=== PATIENT | female | born 1975 | race Caucasian/White ===

== ENCOUNTER 2017-10-22 15:17 | Emergency (ER) | payer OTHER ==
--- NOTE | 2017-10-22 16:20 | RAD REPORT ---
EXAM DESCRIPTION: RAD - Shoulder Right 2 View - 10/22/2017 4:14 pm CLINICAL HISTORY: Right shoulder pain. COMPARISON: 06/20/2017 FINDINGS: Slight offsetting of the AC joint appears chronic. No fracture, dislocation or aggressive marrow lesion. Hardware plate is present in the cervical spine.
--- NOTE | 2017-10-22 16:48 | ER ---
Nurse's Notes [facility] Name: Antonina Thompson Age: 42 yrs Sex: Female : 1975 Arrival Date: 10/22/2017 Time: 15:20 Bed 10 Private MD: Jorge L Ann E Diagnosis: Pain in right shoulder Presentation: 10/22 15:38 Presenting complaint: Patient states: "I think I hurt my shoulder in bed last night". aa5 pt c/o pain to right shoulder. Transition of care: patient was not received from another setting of care. Onset of symptoms was October 22, 2017. Risk Assessment: Do you want to hurt yourself or someone else? Patient reports no desire to harm self or others. Initial Sepsis Screen: Does the patient meet any 2 criteria? No. Patient's initial sepsis screen is negative. Does the patient have a suspected source of infection? No. Patient's initial sepsis screen is negative. Care prior to arrival: None. 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 - Social history:: Smoking status: Patient uses tobacco products, smokes one pack cigarettes per day. - Ebola Screening: : No symptoms or risks identified at this time. - Family history:: not pertinent. - Hospitalizations: : No recent hospitalization is reported. Screenin:15 Abuse screen: Denies threats or abuse. Denies injuries from another. Nutritional kr2 screening: No deficits noted. Tuberculosis screening: No symptoms or risk factors identified. Fall Risk None identified. Assessment: 16:15 General: Appears in no apparent distress. uncomfortable, well groomed, well developed, kr2 well nourished, Behavior is calm, cooperative, appropriate for age. Pain: Complains of pain in right shoulder Pain does not radiate. Pain currently is 10 out of 10 on a pain scale. Quality of pain is described as aching, tender, Pain began this morning Is continuous, Alleviated by rest, Aggravated by increased activity, repositioning. Neuro: Level of Consciousness is awake, alert, obeys commands, Oriented to person, place, time, situation, Appropriate for age Intact. Cardiovascular: Capillary refill < 3 seconds in bilateral fingers Patient's skin is warm and dry. Respiratory: Airway is patent Respiratory effort is even, unlabored, Respiratory pattern is regular, symmetrical. Derm: Skin is intact, is healthy with good turgor, Skin is pink, warm \\T\\ dry. Musculoskeletal: Circulation, motion, and sensation intact. Range of motion: limited in right shoulder. 17:10 Reassessment: Patient appears in no apparent distress at this time. Patient and/or kr2 family updated on plan of care and expected duration. Pain level reassessed. Patient is alert, oriented x 3, equal unlabored respirations, skin warm/dry/pink. Placed right arm in sling as instructed by Dr. Loaiza. Verbalizes increased comfort with sling in place. Vital Signs: 15:40 BP 110 / 80; Pulse 72; Resp 18 S; Temp 98.3(TE); Pulse Ox 98% on R/A; Weight 96.16 kg aa5 (R); Height 5 ft. 6 in. (167.64 cm) (R); Pain 10/10; 15:40 Body Mass Index 34.22 (96.16 kg, 167.64 cm) aa5 ED Course: 15:20 Patient arrived in ED. sb2 15:21 Jorge L Ann MD is Private Physician. sb2 15:39 Triage completed. aa5 15:39 Arm band placed on. aa5 15:49 Daniela Banks RN is Primary Nurse. aa5 15:51 Patient's name was called from ER lobby. No response. 15:58 Luis Loaiza MD is Attending Physician. rn 16:13 X-ray completed. Portable x-ray completed in exam room. Patient tolerated procedure kp1 well. 16:14 XRAY Shoulder RIGHT 2 view In Process Unspecified. EDMS 16:15 Patient has correct armband on for positive identification. Call light in reach. Door kr2 closed. Verbal reassurance given. 16:23 Belem Jenkins, DORA is Primary Nurse. kr2 16:47 Jorge L Ann MD is Referral Physician. rn 17:14 No provider procedures requiring assistance completed. Patient did not have IV access kr2 during this emergency room visit. Administered Medications: No medications were administered Outcome: 16:47 Discharge ordered by . rn 17:14 Discharged to home ambulatory. kr2 17:14 Condition: good 17:14 Discharge instructions given to patient, Instructed on discharge instructions, follow up and referral plans. Demonstrated understanding of instructions, follow-up care. 17:14 Patient left the ED. kr2 Signatures: Dispatcher [employer] EDMS Genoveva Sorto, RN RN Luis Ohara MD MD rn Calderon, Audri, RN RN [email or web address] Laverne Mckeon kp1 Belem Jenkins RN RN kr2 Ayala Ordaz sb2
--- NOTE | 2017-10-22 16:48 | EDPHYS ---
Physician Documentation [facility] Name: Antonina Thompson Age: 42 yrs Sex: Female : 1975 Arrival Date: 10/22/2017 Time: 15:20 Bed 10 Private MD: Jorge L Ann E ED Physician Luis Loaiza HPI: 10/22 16:44 This 42 yrs old Female presents to ER via Ambulatory with complaints of rn Shoulder Pain. 16:44 The patient or guardian complains of pain. right shoulder. Onset: The symptoms/episode rn began/occurred last night. Modifying factors: the symptoms are alleviated by nothing. The symptoms are aggravated by rotation of arm. Severity of symptoms: At their worst the symptoms were moderate, in the emergency department the symptoms have improved. The patient has experienced similar episodes in the past. Reports was asleep, woke up when she felt a pop, no trauma, thinks rolled over, + long standing rotator cuff problems on that arm. . 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 - Social history:: Smoking status: Patient uses tobacco products, smokes one pack cigarettes per day. - Ebola Screening: : No symptoms or risks identified at this time. - Family history:: not pertinent. - Hospitalizations: : No recent hospitalization is reported. ROS: 16:44 Constitutional: Negative for fever, chills, and weight loss, Eyes: Negative for injury, rn pain, redness, and discharge, Neck: Negative for injury, pain, and swelling, Cardiovascular: Negative for chest pain, palpitations, and edema, Respiratory: Negative for shortness of breath, cough, wheezing, and pleuritic chest pain, Abdomen/GI: Negative for abdominal pain, nausea, vomiting, diarrhea, and constipation, MS/Extremity: + right shoulder pain Skin: Negative for injury, rash, and discoloration, Neuro: Negative for headache, weakness, numbness, tingling, and seizure. Exam: 16:44 Constitutional: This is a well developed, well nourished patient who is awake, alert, rn and in no acute distress. Neck: Trachea midline, no thyromegaly or masses palpated, and no cervical lymphadenopathy. Supple, full range of motion without nuchal rigidity, or vertebral point tenderness. No Meningismus. MS/ Extremity: Pulses equal, no cyanosis. Neurovascular intact. + painful ROM right shoulder, no neck tenderness. Vital Signs: 15:40 BP 110 / 80; Pulse 72; Resp 18 S; Temp 98.3(TE); Pulse Ox 98% on R/A; Weight 96.16 kg aa5 (R); Height 5 ft. 6 in. (167.64 cm) (R); Pain 10/10; 15:40 Body Mass Index 34.22 (96.16 kg, 167.64 cm) aa5 MDM: 15:58 Patient medically screened. rn 16:44 Differential diagnosis: Anterior dislocation without fracture, DJD, tendonitis. Data rn reviewed: vital signs, nurses notes, radiologic studies, plain films, and as a result, I will discharge patient. Counseling: I had a detailed discussion with the patient and/or guardian regarding: the historical points, exam findings, and any diagnostic results supporting the discharge/admit diagnosis, radiology results, the need for outpatient follow up, to return to the emergency department if symptoms worsen or persist or if there are any questions or concerns that arise at home. Special discussion: I discussed with the patient/guardian in detail that at this point there is no indication for admission to the hospital. It is understood, however, that if the symptoms persist or worsen the patient needs to return immediately for re-evaluation. Further emergent ED testing is not indicated at this point in time. I discussed with the patient/guardian in detail the need to arrange with the PCP or specialist further outpatient testing, MRI. 10/22 15:58 Order name: XRAY Shoulder RIGHT 2 view; Complete Time: 16:22 rn Administered Medications: No medications were administered Disposition: 10/22/17 16:47 Discharged to Home. Impression: Pain in right shoulder. - Condition is Stable. - Medication Reconciliation Form, Thank You Letter, Antibiotic Education, Prescription Opioid Use form. - Follow up: Jorge L Ann MD; When: As needed; Reason: Recheck today's complaints, Re-evaluation by your physician. - Problem is new. - Symptoms have improved. Signatures: Dispatcher [employer] Luis Hopson MD MD rn Calderon, Audri RN RN aa5 Belem Jenkins RN RN kr2 Corrections: (The following items were deleted from the chart) 17:14 16:47 10/22/2017 16:47 Discharged to Home. Impression: Pain in right shoulder. kr2 Condition is Stable. Forms are Medication Reconciliation Form, Thank You Letter, Antibiotic Education, Prescription Opioid Use. Follow up: Jorge L Ann; When: As needed; Reason: Recheck today's complaints, Re-evaluation by your physician. Problem is new. Symptoms have improved. rn
== END 2017-10-22 17:14 | disposition home or self-care (01) ==
LOC: ER 15:17
DX: M25.511 Pain in right shoulder (principal); I10 Essential (primary) hypertension; J45.909 Unspecified asthma, uncomplicated; Z88.6 Allergy status to analgesic agent; Z88.1 Allergy status to other antibiotic agents
CPT/HCPCS: 99283

== ENCOUNTER 2018-05-22 14:52 | Emergency (ER) | payer OTHER ==
--- OUTSIDE RECORDS SUMMARY | 2018-05-22 14:54 | XMS REPORT ---
:1975 Author Organization eClinicalWorks Care Team Providers Name Role Phone ZaraMikal Provider Role Unavailable Allergies, Adverse Reactions, Alerts Substance Reaction Event Type Ibuprofen Info Not Available Drug Allergy Bactrim Info Not Available Drug Allergy Problems Problem Type Condition Code Onset Dates Condition Status Problem Arthritis M19.90 Active Problem Personal history of other diseases Z87.19 Active of the digestive system Problem Essential hypertension I10 Active Problem Somnolence, daytime R40.0 Active Problem Other specified postprocedural Z98.890 Active states Problem Excessive and frequent menstruation N92.1 Active with irregular cycle Problem Major depressive disorder, single F32.9 Active episode, unspecified Problem Anxiety disorder, unspecified F41.9 Active Problem Family history of Tapia syndrome Z80.0 Active Problem Kidney disease, chronic, stage I N18.1 Active (GFR over 89 ml/min) Assessment Umbilical hernia without K42.9 Active obstruction and without gangrene Problem Reflux esophagitis K21.0 Active Problem Family history of pancreatic cancer Z80.0 Active Problem Menorrhagia with irregular cycle N92.1 Active Problem Family history of breast cancer Z80.3 Active Problem Family history of colon cancer Z80.0 Active Problem Irregular menses N92.6 Active Medications Medication Code Code Instructions Start End Status Dosage System Date Date Diflucan [facility] 44870820967 150 MG Orally October Active 1 tablet Take one now and , repeat dose in 2018 72h Duloxetine HCl ND 24854083851 30 MG Orally Active 1 capsule Once a day Metformin HCl ND 04800698948 500 MG Orally Active 1 tablet Once a day with a meal Trokendi XR [facility] 24117291762 200 MG Orally Active 1 capsule Once a day Lisinopril ND 86073586870 20 MG Orally Active 1 tablet Once a day Results No Known Results Summary Purpose eClinicalWorks Submission
--- OUTSIDE RECORDS SUMMARY | 2018-05-22 14:54 | XMS REPORT ---
:1975 Author Organization e[employer] Care Team Providers Name Role Phone Lupe Benoit Provider Role Unavailable Allergies, Adverse Reactions, Alerts Substance Reaction Event Type Ibuprofen Info Not Available Drug Allergy Bactrim Info Not Available Drug Allergy Problems Problem Type Condition Code Onset Dates Condition Status Problem Arthritis M19.90 Active Problem Personal history of other diseases Z87.19 Active of the digestive system Problem Essential hypertension I10 Active Problem Somnolence, daytime R40.0 Active Assessment Slow rate of speech R47.89 Active Problem Other specified postprocedural Z98.890 Active states Problem Excessive and frequent menstruation N92.1 Active with irregular cycle Problem Major depressive disorder, single F32.9 Active episode, unspecified Problem Anxiety disorder, unspecified F41.9 Active Problem Family history of Tapia syndrome Z80.0 Active Problem Kidney disease, chronic, stage I N18.1 Active (GFR over 89 ml/min) Assessment Excessive and frequent menstruation N92.1 Active with irregular cycle Assessment Somnolence, daytime R40.0 Active Assessment Vaginal discharge N89.8 Active Problem Reflux esophagitis K21.0 Active Problem Family history of pancreatic cancer Z80.0 Active Problem Menorrhagia with irregular cycle N92.1 Active Problem Family history of breast cancer Z80.3 Active Problem Family history of colon cancer Z80.0 Active Problem Irregular menses N92.6 Active Medications Medication Code Code Instructions Start End Status Dosage System Date Date Azithromycin ND 82302633192 1 GM Orally November 12October Active as directed Once a day 2017 Metformin HCl NDC 99842164307 500 MG Orally Active 1 tablet Once a day with a meal Trokendi XR ND 07529893300 200 MG Orally Active 1 capsule Once a day Duloxetine HCl ND 50081107681 30 MG Orally Active 1 capsule Once a day Lisinopril ND 19081739704 20 MG Orally Active 1 tablet Once a day Results Name Result Date Reference Range Unit Abnormality Flag TEST URINE ----RESULTS neg 20171112 URINALYSIS AUTO W/O SCOPE (24748) ----PROTEIN trace 20171112 ----pH 7.0 20171112 ----NIT neg 20171112 ----IDALIA trace 20171112 ----URO 1.0 20171112 ----SPECIFIC GRAVITY 1.020 20171112 ----BLO neg 20171112 ----BILIRUBIN 1+ 20171112 ----KETONES neg 20171112 ----GLUCOSE neg 20171112 Summary Purpose eClinicalWorks Submission
[2018-05-22] MEDS ORDERED: NA CHLORIDE 0.9% 1,000 ML ONE (15:52)
[2018-05-22] MEDS ORDERED: ONDANSETRON 4 MG/2 ML VIAL ONE (15:52)
[2018-05-22] MEDS ORDERED: MORPHINE 4 MG/ML SYR ONE (15:52)
[2018-05-22] MEDS ORDERED: ACETAMINOPHEN 500 MG TAB ONE (15:52)
[2018-05-22 16:04] LABS: Absolute Monocytes 0.5 K/uL (0.1-1.3); Basophils % 0.5 % (0-1.3); Eosinophils % 2.5 % (0-4.4); Hematocrit 38.6 % (36.0-45.0); Lymphocytes % 20.7 % (15.3-44.8); MPV 9.4 fL (7.6-11.3); Monocytes % 4.8 % (3.3-12.3)
[2018-05-22 16:19] LABS: Potassium 4.2 mmol/L (3.5-5.1)
[2018-05-22 16:36] LABS: Urine Bacteria >50 /HPF (<20); Urine Culture Reflex Order REFLEXED; Urine Mucus 1+ /HPF (NONE SEEN); Urine RBC >50 /HPF (NONE SEEN)
--- NOTE | 2018-05-22 16:49 | RAD REPORT ---
EXAM DESCRIPTION: CT - Abdomen Pelvis W Contrast - 05/22/2018 4:36 pm CLINICAL HISTORY: Abdominal pain/hematuria COMPARISON: October 2017 TECHNIQUE: Computed axial tomography of the abdomen pelvis was obtained. 100 cc Isovue-300 was admin istered intravenously. Oral contrast was not requested which limits evaluation of bowel. All CT scans are performed using dose optimization technique as appropriate and may include automated exposure control or mA/KV adjustment according to patient size. FINDINGS: The liver, spleen, pancreas, and adrenals appear unremarkable. Small nonobstructing bilateral renal calculi There is no evidence of diverticulitis. Postsurgical changes involve lumbar spine. Small umbilical hernia. Tubal ligation clips IMPRESSION: Small bilateral nonobstructing renal calculi
[2018-05-22] MEDS ORDERED: CEFTRIAXONE/SWI 1gm 1 GM/10 ML SYR ONE (16:55)
--- NOTE | 2018-05-22 17:06 | EDPHYS ---
Physician Documentation [facility] Name: Antonina Thompson Age: 43 yrs Sex: Female : 1975 Arrival Date: 05/22/2018 Time: 14:55 Bed 20 Private MD: SHERICE DAUGHERTY ED Physician Pedro Rodriguez HPI: 05/22 16:23 This 43 yrs old Female presents to ER via Wheelchair with complaints of kb Possible Kidney Stone. 16:23 The patient presents with flank pain, bilaterally, urinary symptoms, dysuria, kb frequency, hematuria. Onset: The symptoms/episode began/occurred 4 day(s) ago. Modifying factors: The symptoms are alleviated by nothing, the symptoms are aggravated by urinating. Associated signs and symptoms: Pertinent positives: dysuria, fever, hematuria, urinary frequency. The patient has not experienced similar symptoms in the past. The patient has not recently seen a physician. 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 - Social history:: Smoking status: Patient uses tobacco products, smokes one pack cigarettes per day. - Ebola Screening: : Patient negative for fever greater than or equal to 101.5 degrees Fahrenheit, and additional compatible Ebola Virus Disease symptoms Patient denies exposure to infectious person Patient denies travel to an Ebola-affected area in the 21 days before illness onset No symptoms or risks identified at this time. ROS: 16:21 ENT: Negative for injury, pain, and discharge, Neck: Negative for injury, pain, and kb swelling, Cardiovascular: Negative for chest pain, palpitations, and edema, Respiratory: Negative for shortness of breath, cough, wheezing, and pleuritic chest pain, Abdomen/GI: Negative for abdominal pain, nausea, vomiting, diarrhea, and constipation, MS/Extremity: Negative for injury and deformity, Skin: Negative for injury, rash, and discoloration, Neuro: Negative for headache, weakness, numbness, tingling, and seizure. 16:21 Constitutional: Positive for chills, fever, Negative for body aches, fatigue, malaise, poor PO intake, weight loss. 16:21 : Positive for urinary symptoms, flank pain, urinary frequency, burning with urination, difficulty urinating. Exam: 16:22 Constitutional: This is a well developed, well nourished patient who is awake, alert, kb and in no acute distress. Head/Face: Normocephalic, atraumatic. Chest/axilla: Normal chest wall appearance and motion. Nontender with no deformity. No lesions are appreciated. Cardiovascular: Regular rate and rhythm with a normal S1 and S2. No gallops, murmurs, or rubs. Normal PMI, no JVD. No pulse deficits. Respiratory: Lungs have equal breath sounds bilaterally, clear to auscultation and percussion. No rales, rhonchi or wheezes noted. No increased work of breathing, no retractions or nasal flaring. Skin: Warm, dry with normal turgor. Normal color with no rashes, no lesions, and no evidence of cellulitis. MS/ Extremity: Pulses equal, no cyanosis. Neurovascular intact. Full, normal range of motion. Neuro: Awake and alert, GCS 15, oriented to person, place, time, and situation. Cranial nerves II-XII grossly intact. Motor strength 5/5 in all extremities. Sensory grossly intact. Cerebellar exam normal. Normal gait. 16:22 Abdomen/GI: Inspection: abdomen appears normal, Bowel sounds: normal, in all quadrants, Palpation: soft, in all quadrants, moderate abdominal tenderness, in the suprapubic area. 16:22 Back: CVA tenderness, that is moderate, is noted bilaterally. Vital Signs: 15:01 BP 114 / 78; Pulse 73; Resp 16; Temp 101.2; Pulse Ox 99% on R/A; Weight 99.79 kg; ch Height 5 ft. 6 in. (167.64 cm); Pain 10/10; 16:16 BP 105 / 59; Pulse 64; Resp 20; Pulse Ox 100% on R/A; aj 17:00 Temp 98.6(O); aj 17:01 BP 96 / 65; Pulse 79; Resp 22; Temp 97.8; Pulse Ox 100% ; hs1 15:01 Body Mass Index 35.51 (99.79 kg, 167.64 cm) ch MDM: 15:11 Patient medically screened. kb 16:22 Data reviewed: vital signs, nurses notes. Data interpreted: Pulse oximetry: on room air kb is 100 %. Interpretation: normal. 17:05 Counseling: I had a detailed discussion with the patient and/or guardian regarding: the kb historical points, exam findings, and any diagnostic results supporting the discharge/admit diagnosis, lab results, radiology results, the need for outpatient follow up, a family practitioner, to return to the emergency department if symptoms worsen or persist or if there are any questions or concerns that arise at home. 05/22 15:11 Order name: Urine Microscopic Only; Complete Time: 16:40 kb 05/22 15:24 Order name: CBC with Diff; Complete Time: 16:07 kb 05/22 15:24 Order name: Basic Metabolic Panel; Complete Time: 16:19 kb 05/22 15:24 Order name: CT Abd/Pelvis - W/Contrast; Complete Time: 16:53 kb 05/22 15:37 Order name: Urine Dipstick--Ancillary (enter results) ag 05/22 16:38 Order name: Urine Culture EDOR 05/22 15:11 Order name: Urine Test (obtain specimen); Complete Time: 18:08 kb 05/22 15:11 Order name: Urine Dipstick-Ancillary (obtain specimen); Complete Time: 18:08 kb 05/22 15:24 Order name: IV Start; Complete Time: 16:06 kb Administered Medications: 15:55 Drug: Tylenol 1000 mg Route: PO; aj 16:43 Follow up: Response: No adverse reaction aj 17:00 Follow up: Temp 98.6 Oral; Response: Temperature is decreased aj 16:00 Drug: NS 0.9% 1000 ml Route: IV; Rate: 1000 ml; Site: right forearm; aj 18:06 Follow up: Response: No adverse reaction; IV Status: Completed infusion; IV Intake: aj 1000ml 16:00 Drug: Zofran 4 mg Route: IVP; Site: right forearm; aj 16:42 Follow up: Response: No adverse reaction aj 16:00 Drug: morphine 4 mg Route: IVP; Site: right forearm; aj 16:42 Follow up: Response: No adverse reaction aj 16:59 Drug: Rocephin 1 grams Route: IV; Rate: calculated rate; Site: right forearm; aj 17:05 Follow up: Response: No adverse reaction; IV Status: Completed infusion; IV Intake: 10mlaj Disposition: 05/23 07:17 Co-signature as Attending Physician, Pedro Rodriguez MD I agree with the assessment and kdr plan of care. Disposition: 05/22/18 17:05 Discharged to Home. Impression: Urinary tract infection, site not specified. - Condition is Stable. - Discharge Instructions: Urinary Tract Infection, Adult, [id number]. - Prescriptions for Augmentin 875- 125 mg Oral Tablet - take 1 tablet by ORAL route every 12 hours for 10 days; 20 tablet. - Medication Reconciliation Form, Thank You Letter, Antibiotic Education, Prescription Opioid Use form. - Follow up: Private Physician; When: 2 - 3 days; Reason: Recheck today's complaints, Continuance of care, Re-evaluation by your physician. Follow up: Emergency Department; When: As needed; Reason: Worsening of condition. Signatures: Dispatcher [employer] EDMS Katie Rasheed, WEALTH MANAGEMENT CONSULTANT-C WEALTH MANAGEMENT CONSULTANT-Scottb Genoveva Sorto, RN RN Shari Scott RN Pedro English MD MD kdr Corrections: (The following items were deleted from the chart) 05/22 18:08 17:05 05/22/2018 17:05 Discharged to Home. Impression: Urinary tract infection, site aj not specified. Condition is Stable. Forms are Medication Reconciliation Form, Thank You Letter, Antibiotic Education, Prescription Opioid Use. Follow up: Private Physician; When: 2 - 3 days; Reason: Recheck today's complaints, Continuance of care, Re-evaluation by your physician. Follow up: Emergency Department; When: As needed; Reason: Worsening of condition. kb
--- NOTE | 2018-05-22 17:06 | ER ---
Nurse's Notes [facility] Name: Antonina Thompson Age: 43 yrs Sex: Female : 1975 Arrival Date: 05/22/2018 Time: 14:55 Bed 20 Private MD: SHERICE DAUGHERTY Diagnosis: Urinary tract infection, site not specified Presentation: 05/22 14:58 Presenting complaint: Patient states: back pain, pain around my vagaina, urinating ch blood since 05/19/18. not feeling well, and my Genitals are swollen. I have to pee all the time, and I feel the urge to push. Transition of care: patient was not received from another setting of care. Onset of symptoms was May 19, 2018. Risk Assessment: Do you want to hurt yourself or someone else? Patient reports no desire to harm self or others. Initial Sepsis Screen: Does the patient meet any 2 criteria? No. Patient's initial sepsis screen is negative. Does the patient have a suspected source of infection? No. Patient's initial sepsis screen is negative. Care prior to arrival: None. 14:58 Method Of Arrival: Wheelchair 14:58 Acuity: CAL 3 Triage Assessment: 15:00 General: Appears in no apparent distress. uncomfortable, Behavior is anxious. Pain: Complains of pain in back and pelvis. 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 - Social history:: Smoking status: Patient uses tobacco products, smokes one pack cigarettes per day. - Ebola Screening: : Patient negative for fever greater than or equal to 101.5 degrees Fahrenheit, and additional compatible Ebola Virus Disease symptoms Patient denies exposure to infectious person Patient denies travel to an Ebola-affected area in the 21 days before illness onset No symptoms or risks identified at this time. Screenin:03 Abuse screen: Denies threats or abuse. Denies injuries from another. Nutritional aj screening: No deficits noted. Tuberculosis screening: No symptoms or risk factors identified. Fall Risk None identified. Assessment: 15:55 General: Appears in no apparent distress. uncomfortable, Behavior is calm, cooperative, aj appropriate for age. Pain: Complains of pain in back. Neuro: Level of Consciousness is awake, alert, obeys commands, Oriented to person, place, time, situation, Appropriate for age. Respiratory: Airway is patent Respiratory effort is even, unlabored, Respiratory pattern is regular, symmetrical. GI: Abdomen is obese, Bowel sounds present X 4 quads. Abd is soft Abdomen is tender to palpation X 4 quads. Derm: Skin is intact, is healthy with good turgor, Skin is pink, warm \T\ dry. normal. 17:48 Reassessment: Patient appears in no apparent distress at this time. No changes from previously documented assessment. Patient and/or family updated on plan of care and expected duration. Pain level reassessed. Patient is alert, oriented x 3, equal unlabored respirations, skin warm/dry/pink. Vital Signs: 15:01 BP 114 / 78; Pulse 73; Resp 16; Temp 101.2; Pulse Ox 99% on R/A; Weight 99.79 kg; Height 5 ft. 6 in. (167.64 cm); Pain 10/10; 16:16 BP 105 / 59; Pulse 64; Resp 20; Pulse Ox 100% on R/A; aj 17:00 Temp 98.6(O); aj 17:01 BP 96 / 65; Pulse 79; Resp 22; Temp 97.8; Pulse Ox 100% ; hs1 15:01 Body Mass Index 35.51 (99.79 kg, 167.64 cm) ED Course: 14:55 Patient arrived in ED. sb2 14:56 SHERICE DAUGHERTY is Private Physician. sb2 14:59 Triage completed. 15:01 Arm band placed on left wrist. Patient placed in an exam room, on a stretcher. 15:11 [facility]C [facility] kb 15:11 Pedro Rodriguez MD is Attending Physician. kb 15:26 Radiology exam delayed due to lab results not completed at this time. (BUN/Creatinine). sj 15:39 Shari Urena, RN is Primary Nurse. aj 16:03 Patient has correct armband on for positive identification. aj 16:03 Inserted saline lock: 22 gauge in right forearm, using aseptic technique. Blood aj collected. 16:[address] via wheelchair. 2 16:35 CT completed. Patient tolerated procedure well. Patient moved back from CT. nj 16:36 CT Abd/Pelvis - W/Contrast In Process Unspecified. EDMS 17:48 No provider procedures requiring assistance completed. IV discontinued, intact, aj bleeding controlled, No redness/swelling at site. Pressure dressing applied. Administered Medications: 15:55 Drug: Tylenol 1000 mg Route: PO; aj 16:43 Follow up: Response: No adverse reaction aj 17:00 Follow up: Temp 98.6 Oral; Response: Temperature is decreased aj 16:00 Drug: NS 0.9% 1000 ml Route: IV; Rate: 1000 ml; Site: right forearm; aj 18:06 Follow up: Response: No adverse reaction; IV Status: Completed infusion; IV Intake: aj 1000ml 16:00 Drug: Zofran 4 mg Route: IVP; Site: right forearm; aj 16:42 Follow up: Response: No adverse reaction aj 16:00 Drug: morphine 4 mg Route: IVP; Site: right forearm; aj 16:42 Follow up: Response: No adverse reaction aj 16:59 Drug: Rocephin 1 grams Route: IV; Rate: calculated rate; Site: right forearm; aj 17:05 Follow up: Response: No adverse reaction; IV Status: Completed infusion; IV Intake: 10mlaj Intake: 17:05 IV: 10ml; Total: 10ml. aj 18:06 IV: 1000ml; Total: 1010ml. aj Outcome: 17:05 Discharge ordered by . kb 17:48 Discharged to home via wheelchair. aj 17:48 Condition: good 17:48 Discharge instructions given to patient, Instructed on discharge instructions, follow up and referral plans. medication usage, Demonstrated understanding of instructions, follow-up care, medications, Prescriptions given X 1. 18:08 Patient left the ED. aj Addendum: 05/27/2018 09:04 Addendum: Culture Results: Positive urine culture. Bacteria is resistant to, has s s intermediate sensitivity, or is not tested against prescribed antibiotics. Report given to ELENA for further evaluation and then to mold burner for follow up with patient. Phone call Attempt #1 No answer, Left Certified letter sent to listed address for patient. Signatures: Dispatcher [employer] Katie Pillai, VENEER STAPLER-C VENEER STAPLER-Ckb Genoveva Sorto, RN Shari Gupta ch, RN RN aj Jones, Susan sj Smirch, Shelby, RN RN ss Jordan, Nathan nj McGuire, [facility] Ayala Ordaz sb2 Julienne Cruz hs1
[2018-05-22 20:47] LABS: Urine Blood 2+ (NEG); Urine Glucose NEGATIVE (NEG); Urine Protein 2+ (NEG); Urine Specific Gravity 1.025 (1.005-1.030)
== END 2018-05-22 18:08 | disposition home or self-care (01) ==
LOC: ER 14:52
DX: N39.0 Urinary tract infection, site not specified (principal); I10 Essential (primary) hypertension; Z88.6 Allergy status to analgesic agent; Z88.1 Allergy status to other antibiotic agents; Z85.89 Personal history of malignant neoplasm of other organs and systems
CPT/HCPCS: 36415; 74177; 80048; 85025; 87077; 87086; 87088; 87186; 96361; 96374; 96375; 99284; J0696; J2405; J7030; Q9967; 81003; 81015

== ENCOUNTER 2019-01-28 14:17 | Emergency (ER) | payer OTHER ==
--- OUTSIDE RECORDS SUMMARY | 2019-01-28 14:19 | XMS REPORT ---
[...] End Status Dosage System Date Date Diflucan [facility] 35205620241 150 MG Orally October Active 1 tablet Take one now and , repeat dose in 2018 72h Duloxetine HCl ND 30607654587 30 MG Orally Active 1 capsule Once a day Metformin HCl ND 59910964545 500 MG Orally Active 1 tablet Once a day with a meal Trokendi XR [facility] 30005973702 200 MG Orally Active 1 capsule Once a day Lisinopril ND 83041929342 20 MG Orally Active 1 tablet Once a day Results No Known Results Summary Purpose eClinicalWorks Submission
--- OUTSIDE RECORDS SUMMARY | 2019-01-28 14:19 | XMS REPORT ---
:1975 [facility] Address [address] [place] [address] Dr. Escalante [address] [place] [id number] Care Team Providers Name Role Phone Unavailable Unavailable Unavailable Problems This patient has no known problems. Allergies, Adverse Reactions, Alerts This patient has no known allergies or adverse reactions. Medications This patient has no known medications.
--- OUTSIDE RECORDS SUMMARY | 2019-01-28 14:19 | XMS REPORT ---
[...] Status Dosage System Date Date Azithromycin ND 47282927690 1 GM Orally November 12October Active as directed Once a day 2017 Metformin HCl NDC 39001285435 500 MG Orally Active 1 tablet Once a day with a meal Trokendi XR ND 15121253579 200 MG Orally Active 1 capsule Once a day Duloxetine HCl ND 26738649321 30 MG Orally Active 1 capsule Once a day Lisinopril ND 00360909148 20 MG Orally Active 1 tablet Once a day Results Name Result Date Reference Range Unit Abnormality Flag TEST URINE ----RESULTS neg 20171112 URINALYSIS AUTO W/O SCOPE (59166) ----PROTEIN trace 20171112 ----pH 7.0 20171112 ----NIT neg 20171112 ----IDALIA trace 20171112 ----URO 1.0 20171112 ----SPECIFIC GRAVITY 1.020 20171112 ----BLO neg 20171112 ----BILIRUBIN 1+ 20171112 ----KETONES neg 20171112 ----GLUCOSE neg 20171112 Summary Purpose eClinicalWorks Submission
[2019-01-28] MEDS ORDERED: LIDOCAINE 1% 20 ML MDV ONE (15:19)
--- NOTE | 2019-01-28 16:01 | ER ---
Nurse's Notes [facility] Name: Antonina Thompson Age: 44 yrs Sex: Female : 1975 Arrival Date: 01/28/2019 Time: 14:22 Bed 18 Private MD: Diagnosis: Abscess of Scalp Presentation: 01/28 14:26 Presenting complaint: Patient states: abscess to back of head x 6 days. Transition of ss care: patient was not received from another setting of care. Onset of symptoms was January 22, 2019. Risk Assessment: Do you want to hurt yourself or someone else? Patient reports no desire to harm self or others. Initial Sepsis Screen: Does the patient meet any 2 criteria? No. Patient's initial sepsis screen is negative. Does the patient have a suspected source of infection? No. Patient's initial sepsis screen is negative. Care prior to arrival: None. 14:26 Method Of Arrival: Ambulatory ss 14:26 Acuity: CAL 4 ss Triage Assessment: 14:30 General: Appears in no apparent distress. uncomfortable, obese, Behavior is bp cooperative, appropriate for age, anxious. Pain: Complains of pain in scalp. EENT: No deficits noted. Neuro: No deficits noted. Cardiovascular: No deficits noted. Respiratory: No deficits noted. GI: No signs and/or symptoms were reported involving the gastrointestinal system. : No signs and/or symptoms were reported regarding the genitourinary system. Derm: Abscess located on scalp is quarter sized. Musculoskeletal: No deficits noted. 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 - Social history:: Smoking status: Patient uses tobacco products, smokes one-half pack cigarettes per day. - Ebola Screening: : Patient denies exposure to infectious person Patient denies travel to an Ebola-affected area in the 21 days before illness onset. Screenin:30 Abuse screen: Denies threats or abuse. Denies injuries from another. Nutritional bp screening: No deficits noted. Tuberculosis screening: No symptoms or risk factors identified. Fall Risk None identified. Assessment: 14:30 General: SEE TRIAGE NOTE. bp 15:30 Reassessment: PROVIDER AT B/S FOR I\T\D. bp 17:05 Reassessment: PT D/C HOME AMBULATORY, DX WITH CUTANEOUS ABSCESS. bp Vital Signs: 14:26 BP 116 / 81; Pulse 87; Resp 16; Temp 98.0(TE); Pulse Ox 98% on R/A; Weight 108.86 kg; ss Height 5 ft. 6 in. (167.64 cm); Pain 7/10; 15:30 BP 121 / 75; Pulse 75; Resp 16; Temp 98; Pulse Ox 99% ; bp 17:00 BP 119 / 81; Pulse 85; Resp 17; Temp 98; Pulse Ox 98% ; bp 14:26 Body Mass Index 38.74 (108.86 kg, 167.64 cm) ss ED Course: 14:22 Patient arrived in ED. as 14:27 Triage completed. ss 14:30 Patient has correct armband on for positive identification. Bed in low position. Call bp light in reach. Side rails up X2. 14:30 Arm band placed on. bp 15:04 Taran Olivera, RN is Primary Nurse. bp 15:10 Aquilino Vora PA is PHCP. [facility] 15:10 Pedro Rodriguez MD is Attending Physician. [facility] 15:30 Assist provider with I \T\ D: of an abscess on SCALP Set up I\T\D tray. Performed by Aquilino ONEAL Wound packed. iodoform gauze, Dressing with 4X4s. 15:59 Daren Gilliam MD is Referral Physician. jmm 17:06 Patient did not have IV access during this emergency room visit. bp Administered Medications: 15:21 Drug: Lidocaine (1 %) 20 ml Volume: 20 ml; Route: Infiltration; bp 16:37 Drug: Tylenol #3 (300 mg-30 mg) 1 tablet Route: PO; bp 17:07 Follow up: Response: Pain is decreased bp Outcome: 15:59 Discharge ordered by . jmm 17:06 Discharged to home ambulatory. bp 17:06 Condition: stable 17:06 Discharge instructions given to patient, Instructed on discharge instructions, follow up and referral plans. medication usage, wound care, Demonstrated understanding of instructions, follow-up care, medications, wound care, Prescriptions given X 1. 17:07 Patient left the ED. bp Signatures: Aquilino Vora PA PA jmm Martinez, Amelia as Smirch, Shelby, DORA RN ss Taran Olivera RN RN bp
--- NOTE | 2019-01-28 16:02 | EDPHYS ---
Physician Documentation [facility] Name: Antonina Thompson Age: 44 yrs Sex: Female : 1975 Arrival Date: 01/28/2019 Time: 14:22 Bed 18 Private MD: ED Physician Pedro Rodriguez HPI: 01/28 15:17 This 44 yrs old Female presents to ER via Ambulatory with complaints of jmm Abscess. 15:17 The patient presents with an abscess of the scalp. Onset: The symptoms/episode jmm began/occurred gradually, 3 day(s) ago. Possible cause(s): unknown. Associated signs and symptoms: Pertinent positives: drainage, erythema, swelling, Pertinent negatives: fever. Modifying factors: the symptoms are alleviated by nothing, the symptoms are aggravated by nothing. This is a 44 year old female with a history of htn that presents to the ED with complaints of swelling to her scalp beginning approx 3 days ago. Patient denies fever. . 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 - Social history:: Smoking status: Patient uses tobacco products, smokes one-half pack cigarettes per day. - Ebola Screening: : Patient denies exposure to infectious person Patient denies travel to an Ebola-affected area in the 21 days before illness onset. ROS: 15:17 Constitutional: Negative for fever, chills, and weight loss, Cardiovascular: Negative jmm for chest pain, palpitations, and edema, Respiratory: Negative for shortness of breath, cough, wheezing, and pleuritic chest pain. 15:17 Skin: Positive for abscess. 15:17 All other systems are negative. Exam: 15:17 Constitutional: This is a well developed, well nourished patient who is awake, alert, jmm and in no acute distress. 15:17 Eyes: EOMI, no conjunctival erythema appreciated ENT: Moist Mucus Membranes Neck: Trachea midline, Supple Chest/axilla: Normal chest wall appearance and motion. Cardiovascular: Regular rate and rhythm. No edema appreciated Respiratory: Normal respirations, no respiratory distress appreciated Abdomen/GI: Non distended, soft Back: Normal ROM 15:17 Head/face: draining abscess noted to the posterior scalp. 15:17 Skin: draining abscess noted to the posterior scalp. 15:17 Neuro: Orientation: is normal, Mentation: is normal, Memory: is normal. 15:17 Psych: Behavior/mood is pleasant, cooperative. Vital Signs: 14:26 BP 116 / 81; Pulse 87; Resp 16; Temp 98.0(TE); Pulse Ox 98% on R/A; Weight 108.86 kg; ss Height 5 ft. 6 in. (167.64 cm); Pain 7/10; 15:30 BP 121 / 75; Pulse 75; Resp 16; Temp 98; Pulse Ox 99% ; bp 17:00 BP 119 / 81; Pulse 85; Resp 17; Temp 98; Pulse Ox 98% ; bp 14:26 Body Mass Index 38.74 (108.86 kg, 167.64 cm) Procedures: 15:57 I \T\ D: Incision and drainage was performed for an abscess of the scalp Prepped with [facility] Betadine, Anesthetized with 1 ml's 1% Lidocaine. Incised with #11 blade. Drained moderate amount purulent fluid. Packed with iodoform gauze, Dressing: sterile 4x4 gauze, the patient tolerated the procedure well. MDM: 15:16 Patient medically screened. [facility] 15:58 Data reviewed: vital signs, nurses notes. Counseling: I had a detailed discussion with [facility] the patient and/or guardian regarding: the historical points, exam findings, and any diagnostic results supporting the discharge/admit diagnosis, the need for outpatient follow up, to return to the emergency department if symptoms worsen or persist or if there are any questions or concerns that arise at home. ED course: Patient is alert and non toxic in appearance in the ED. Patient advised to follow up with general surgery and otherwise given strict return precautions. Patient understood and agrees with the plan of care. . 01/28 15:16 Order name: Incision \T\ Drainage Setup; Complete Time: 15:21 [facility] Administered Medications: 15:21 Drug: Lidocaine (1 %) 20 ml Volume: 20 ml; Route: Infiltration; bp 16:37 Drug: Tylenol #3 (300 mg-30 mg) 1 tablet Route: PO; bp 17:07 Follow up: Response: Pain is decreased bp Disposition: 01/28/19 15:59 Discharged to Home. Impression: Abscess of Scalp. - Condition is Stable. - Discharge Instructions: Skin Abscess, Incision and Drainage, Care After. - Prescriptions for Doxycycline Monohydrate 100 mg Oral Tablet - take 1 tablet by ORAL route every 12 hours for 10 days; 20 tablet. - Medication Reconciliation Form, Thank You Letter, Antibiotic Education, Prescription Opioid Use form. - Follow up: Daren Gilliam MD; When: 2 - 3 days; Reason: Recheck today's complaints, Continuance of care, Re-evaluation by your physician. Addendum: 02/02/2019 09:43 Co-signature as Attending Physician, Pedro Rodriguez MD I agree with the assessment and k dr plan of care. Signatures: Pedro Rodriguez MD MD [facility] Aquilino Vora PA PA jmm Smirch, Shelby, RN RN ss Taran Olivera RN RN bp Corrections: (The following items were deleted from the chart) 01/28 17:07 15:59 01/28/2019 15:59 Discharged to Home. Impression: Abscess of Scalp. Condition is bp Stable. Forms are Medication Reconciliation Form, Thank You Letter, Antibiotic Education, Prescription Opioid Use. Follow up: Daren Gilliam; When: 2 - 3 days; Reason: Recheck today's complaints, Continuance of care, Re-evaluation by your physician. tricia
[2019-01-28] MEDS ORDERED: CODEINE 30MG/APAP 300MG TAB ONE (16:23)
[2019-01-28 18:00] VITALS: BP 116/81; TEMP 98; O2SAT 98
== END 2019-01-28 17:07 | disposition home or self-care (01) ==
LOC: ER 14:17
PROC: 0J900ZZ Drainage of Scalp Subcutaneous Tissue and Fascia, Open Approach (ICD-10-PCS; principal; 2019-01-28)
DX: L02.811 Cutaneous abscess of head [any part, except face] (principal); I10 Essential (primary) hypertension; F17.210 Nicotine dependence, cigarettes, uncomplicated; Z85.01 Personal history of malignant neoplasm of esophagus; Z88.1 Allergy status to other antibiotic agents; Z88.6 Allergy status to analgesic agent; Z88.8 Allergy status to other drugs, medicaments and biological substances
CPT/HCPCS: 99283

== ENCOUNTER 2019-05-17 02:21 | Emergency (ER) | payer OTHER ==
--- OUTSIDE RECORDS SUMMARY | 2019-05-17 02:23 | XMS REPORT ---
[...] End Status Dosage System Date Date Diflucan [facility] 40556346285 150 MG Orally October Active 1 tablet Take one now and , repeat dose in 2018 72h Duloxetine HCl ND 86431226891 30 MG Orally Active 1 capsule Once a day Metformin HCl ND 68918446333 500 MG Orally Active 1 tablet Once a day with a meal Trokendi XR [facility] 61312272131 200 MG Orally Active 1 capsule Once a day Lisinopril ND 08666581174 20 MG Orally Active 1 tablet Once a day Results No Known Results Summary Purpose eClinicalWorks Submission
--- OUTSIDE RECORDS SUMMARY | 2019-05-17 02:23 | XMS REPORT ---
[...] Status Dosage System Date Date Azithromycin ND 08221217220 1 GM Orally November 12October Active as directed Once a day 2017 Metformin HCl NDC 08667965835 500 MG Orally Active 1 tablet Once a day with a meal Trokendi XR ND 81058348199 200 MG Orally Active 1 capsule Once a day Duloxetine HCl ND 54746263243 30 MG Orally Active 1 capsule Once a day Lisinopril ND 38911631865 20 MG Orally Active 1 tablet Once a day Results Name Result Date Reference Range Unit Abnormality Flag TEST URINE ----RESULTS neg 20171112 URINALYSIS AUTO W/O SCOPE (00282) ----PROTEIN trace 20171112 ----pH 7.0 20171112 ----NIT neg 20171112 ----IDALIA trace 20171112 ----URO 1.0 20171112 ----SPECIFIC GRAVITY 1.020 20171112 ----BLO neg 20171112 ----BILIRUBIN 1+ 20171112 ----KETONES neg 20171112 ----GLUCOSE neg 20171112 Summary Purpose eClinicalWorks Submission
--- OUTSIDE RECORDS SUMMARY | 2019-05-17 02:23 | XMS REPORT ---
:1975 [facility] Address [address] [place] [address] Dr. Escalante [address] [place] [address] Care Team Providers Name Role Phone Unavailable Unavailable Unavailable Problems This patient has no known problems. Allergies, Adverse Reactions, Alerts This patient has no known allergies or adverse reactions. Medications This patient has no known medications.
[2019-05-17] MEDS ORDERED: METHYLPREDNISOLONE 125 MG INJ ONE (02:46)
[2019-05-17] MEDS ORDERED: NA CHLORIDE 0.9% 1,000 ML ONE (02:47)
[2019-05-17] MEDS ORDERED: FAMOTIDINE 20 MG/2 ML VIAL IV ONE (02:47)
[2019-05-17] MEDS ORDERED: EPINEPHRINE INH 0.5 ML VIAL IH ONE (02:47)
[2019-05-17] MEDS ORDERED: DIPHENHYDRAMINE 50 MG/ML VIAL ONE (02:47)
[2019-05-17 04:39] LABS: Absolute Lymphocytes (CBC) 0.9 K/uL (0.7-4.9); Basophils % 0.1 % (0-1.3); Hematocrit 42.1 % (36.0-45.0); Lymphocytes % 8.6 % (15.3-44.8); MPV 9.7 fL (7.6-11.3); RBC Red Blood Cell Count 4.73 M/uL (3.86-4.86)
[2019-05-17 04:42] LABS: Potassium 3.3 mmol/L (3.5-5.1)
--- NOTE | 2019-05-17 06:21 | ER ---
Nurse's Notes [facility] Name: Antonina Thompson Age: 44 yrs Sex: Female : 1975 Arrival Date: 05/17/2019 Time: 02:22 Bed 17 Private MD: Diagnosis: Angioedema - lisinopril Presentation: 05/17 02:39 Presenting complaint: Patient states: "I started having an allergic reaction yesterday jd3 around 1800. I gave myself an epi pin and Benadryl at 2200, but it hasn't gone away." pt reporting shortness of breath and chest pain. angioedema noted. Transition of care: patient was not received from another setting of care. Onset: The symptoms/episode began/occurred yesterday. Anaphylaxis evaluation, angioedema chest pain. Onset of symptoms was May 16, 2019. Risk Assessment: Do you want to hurt yourself or someone else? Patient reports no desire to harm self or others. Initial Sepsis Screen: Does the patient meet any 2 criteria? No. Patient's initial sepsis screen is negative. Does the patient have a suspected source of infection? No. Patient's initial sepsis screen is negative. Care prior to arrival: None. 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 - Social history:: Smoking status: Patient uses tobacco products, denies chronic smoking, but will smoke occasionally. - Ebola Screening: : Patient negative for fever greater than or equal to 101.5 degrees Fahrenheit, and additional compatible Ebola Virus Disease symptoms. - Family history:: not pertinent. - Hospitalizations: : No recent hospitalization is reported. Screenin:15 Abuse screen: Denies threats or abuse. Nutritional screening: No deficits noted. jd3 Tuberculosis screening: No symptoms or risk factors identified. Fall Risk Ambulatory Aid- None/Bed Rest/Nurse Assist (0 pts). Gait- Normal/Bed Rest/Wheelchair (0 pts) Mental Status- Oriented to own ability (0 pts). Total Oleary Fall Scale indicates No Risk (0-24 pts). Assessment: 02:39 General: Appears uncomfortable, Behavior is cooperative, appropriate for age, anxious. jd3 Pain: Complains of pain in chest Quality of pain is described as pressure, sharp. Neuro: Level of Consciousness is awake, alert, obeys commands, Oriented to person, place, time, situation. Cardiovascular: Capillary refill < 3 seconds Patient's skin is warm and dry. Respiratory: Reports shortness of breath at rest labored breathing Airway is patent Respiratory effort is labored, shallow, Respiratory pattern is tachypnea Breath sounds are clear bilaterally. GI: Reports nausea, vomiting. : No signs and/or symptoms were reported regarding the genitourinary system. EENT: No signs and/or symptoms were reported regarding the EENT system. Derm: Skin is intact, Skin is dry, Skin is normal, Skin temperature is warm. Musculoskeletal: Circulation, motion, and sensation intact. Range of motion: intact in all extremities, Swelling present in mouth. 03:15 Reassessment: Patient appears in no apparent distress at this time. Patient and/or jd3 family updated on plan of care and expected duration. Pain level reassessed. Patient is alert, oriented x 3, equal unlabored respirations, skin warm/dry/pink. pt resting in bed, reports she feels the swelling has stopped. Patient states feeling better. 04:14 Reassessment: Patient appears in no apparent distress at this time. No changes from jd3 previously documented assessment. Patient and/or family updated on plan of care and expected duration. Pain level reassessed. Patient is alert, oriented x 3, equal unlabored respirations, skin warm/dry/pink. pt lying in bed with even and unlabored respirations, call alexandre in reach, no distress noted at this time. 05:20 Reassessment: Patient appears in no apparent distress at this time. Patient and/or jd3 family updated on plan of care and expected duration. Pain level reassessed. Patient is alert, oriented x 3, equal unlabored respirations, skin warm/dry/pink. pt reports relief from chest pain and breathing difficulty. reporting stomach aching from past medical history of Crohn's. Patient states feeling better. 06:13 Reassessment: Patient appears in no apparent distress at this time. Patient and/or jd3 family updated on plan of care and expected duration. Pain level reassessed. Patient is alert, oriented x 3, equal unlabored respirations, skin warm/dry/pink. decreased swelling noted to face. Patient states feeling better. 07:11 Reassessment: Patient appears in no apparent distress at this time. Patient and/or jd3 family updated on plan of care and expected duration. Pain level reassessed. Patient is alert, oriented x 3, equal unlabored respirations, skin warm/dry/pink. pt reported understanding of discharge instructions. waiting for family/ride in room. Vital Signs: 03:15 BP 124 / 99; Pulse 118; Resp 24 S; Temp 97.9(A); Pulse Ox 100% on R/A; Weight 81.65 kg jd3 (R); Height 5 ft. 6 in. (167.64 cm) (R); Pain 10/10; 03:30 Pulse 89; Resp 22 S; Pulse Ox 99% on 2 lpm NC; jd3 04:15 BP 102 / 70; Pulse 86; Resp 20 S; Pulse Ox 99% on 2 lpm NC; jd3 05:21 BP 114 / 79; Pulse 88; Resp 19 S; Pulse Ox 99% on R/A; jd3 06:12 BP 123 / 79; Pulse 87; Resp 19 S; Pulse Ox 99% on R/A; jd3 07:13 Pulse 88; Resp 18 S; Pulse Ox 99% on R/A; jd3 03:15 Body Mass Index 29.05 (81.65 kg, 167.64 cm) jd3 ED Course: 02:22 Patient arrived in ED. ds1 02:24 Luis Loaiza MD is Attending Physician. rn 02:32 Mendoza Rivers RN is Primary Nurse. jd3 03:11 Triage completed. jd3 03:15 Patient has correct armband on for positive identification. Bed in low position. Call j light in reach. Side rails up X 1. 03:15 Arm band placed on. jd3 07:12 No provider procedures requiring assistance completed. IV discontinued, intact, jd3 bleeding controlled, No redness/swelling at site. Pressure dressing applied. Administered Medications: 03:00 Drug: Pepcid 20 mg Route: IVP; Site: right forearm; jd3 04:00 Follow up: Response: No adverse reaction jd3 03:00 Drug: NS 0.9% 1000 ml Route: IV; Rate: 1000 ml; Site: right forearm; jd3 04:30 Follow up: Response: No adverse reaction; IV Status: Completed infusion; IV Intake: jd3 1000ml 03:01 Drug: Racemic EPINPHrine 0.5 ml Route: Inhalation; jd3 04:00 Follow up: Response: No adverse reaction jd3 03:01 Drug: SOLU-Medrol 125 mg Route: IVP; Site: right forearm; jd3 04:00 Follow up: Response: No adverse reaction jd3 03:01 Drug: Benadryl 50 mg Route: IVP; Site: right forearm; jd3 04:00 Follow up: Response: No adverse reaction jd3 Intake: 04:30 IV: 1000ml; Total: 1000ml. jd3 Outcome: 06:20 Discharge ordered by . rn 07:12 Discharged to home via wheelchair, with family, with friend. jd3 07:12 Condition: stable 07:12 Discharge instructions given to patient, Instructed on discharge instructions, follow up and referral plans. Demonstrated understanding of instructions, follow-up care. 08:06 Patient left the ED. em Signatures: Manjinder Keller, CAR DRYER CAR DRYER Corine Hammond ds1 Luis Loaiza MD MD rn Davies, Jonathon, RN RN jd3
--- NOTE | 2019-05-17 06:22 | EDPHYS ---
Physician Documentation [facility] Name: Antonina Thompson Age: 44 yrs Sex: Female : 1975 Arrival Date: 05/17/2019 Time: 02:22 Bed 17 Private MD: ED Physician Luis Loaiza HPI: 05/17 03:31 This 44 yrs old Female presents to ER via Wheelchair with complaints of rn Allergic Reaction. 03:31 The patient presents with localized swelling. Onset: The symptoms/episode rn began/occurred yesterday. Associated signs and symptoms: The patient has no apparent associated signs or symptoms. Pertinent negatives: hives, rash, shortness of breath. Possible causes: KATH inhibitor. Severity of symptoms: At their worst the symptoms were moderate in the emergency department the symptoms are unchanged. The patient has experienced similar episodes in the past. Reports not sure if allergic reaction, very allergic to bees and other things, noticed bee in car, not sure if stung her or not, used epi pen yesterday, did not get better today so came in for eval. Also takes lisinopril. . 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 - Social history:: Smoking status: Patient uses tobacco products, denies chronic smoking, but will smoke occasionally. - Ebola Screening: : Patient negative for fever greater than or equal to 101.5 degrees Fahrenheit, and additional compatible Ebola Virus Disease symptoms. - Family history:: not pertinent. - Hospitalizations: : No recent hospitalization is reported. ROS: 03:31 Constitutional: Negative for fever, chills, and weight loss, Eyes: Negative for injury, rn pain, redness, and discharge, ENT: + swelling of lips Neck: Negative for injury, pain, and swelling, Cardiovascular: Negative for chest pain, palpitations, and edema, Respiratory: Negative for shortness of breath, cough, wheezing, and pleuritic chest pain, Abdomen/GI: Negative for abdominal pain, nausea, vomiting, diarrhea, and constipation, MS/Extremity: Negative for injury and deformity, Skin: Negative for injury, rash, and discoloration, Neuro: Negative for headache, weakness, numbness, tingling, and seizure. Exam: 03:31 Constitutional: This is a well developed, well nourished patient who is awake, alert, rn and in no acute distress. Head/Face: Normocephalic, atraumatic. ENT: + both lips swollen moderately, able to completely open mouth, no stridor or tongue swelling Cardiovascular: Tachycardic, regular Respiratory: Mild tachypnea, no retractions, no wheezing Abdomen/GI: soft, non-tender Skin: Warm, dry with normal turgor. Normal color with no rashes, no lesions, and no evidence of cellulitis. MS/ Extremity: Pulses equal, no cyanosis. Neurovascular intact. Full, normal range of motion. Equal circumference. Neuro: Awake and alert, GCS 15, oriented to person, place, time, and situation. Cranial nerves II-XII grossly intact. Motor strength 5/5 in all extremities. Sensory grossly intact. Cerebellar exam normal. Normal gait. Vital Signs: 03:15 BP 124 / 99; Pulse 118; Resp 24 S; Temp 97.9(A); Pulse Ox 100% on R/A; Weight 81.65 kg jd3 (R); Height 5 ft. 6 in. (167.64 cm) (R); Pain 10/10; 03:30 Pulse 89; Resp 22 S; Pulse Ox 99% on 2 lpm NC; jd3 04:15 BP 102 / 70; Pulse 86; Resp 20 S; Pulse Ox 99% on 2 lpm NC; jd3 05:21 BP 114 / 79; Pulse 88; Resp 19 S; Pulse Ox 99% on R/A; jd3 06:12 BP 123 / 79; Pulse 87; Resp 19 S; Pulse Ox 99% on R/A; jd3 07:13 Pulse 88; Resp 18 S; Pulse Ox 99% on R/A; jd3 03:15 Body Mass Index 29.05 (81.65 kg, 167.64 cm) j MDM: 02:24 Patient medically screened. rn 06:14 Differential diagnosis: angioedema. Data reviewed: vital signs, nurses notes, lab test rn result(s), and as a result, I will discharge patient. Counseling: I had a detailed discussion with the patient and/or guardian regarding: the historical points, exam findings, and any diagnostic results supporting the discharge/admit diagnosis, lab results, the need for outpatient follow up, to return to the emergency department if symptoms worsen or persist or if there are any questions or concerns that arise at home. Special discussion: I discussed with the patient/guardian in detail that at this point there is no indication for admission to the hospital. It is understood, however, that if the symptoms persist or worsen the patient needs to return immediately for re-evaluation. 06:17 ED course: Swelling with some improvement, sleeping comfortably, no signs of airway rn compromise or impending compromise, most likely angioedema from KATH, lisinopril. Told her to stop taking it. Return precautions given and understood, will discontinue lisinopril and will dc with steroids. . 06:17 Response to treatment: the patient's symptoms have mildly improved after treatment, and rn as a result, I will discharge patient. 05/17 02:29 Order name: CBC with Diff; Complete Time: 04:48 rn 05/17 02:29 Order name: Basic Metabolic Panel; Complete Time: 04:48 rn 05/17 02:29 Order name: IV Start; Complete Time: 02:39 rn Administered Medications: 03:00 Drug: Pepcid 20 mg Route: IVP; Site: right forearm; jd3 04:00 Follow up: Response: No adverse reaction jd3 03:00 Drug: NS 0.9% 1000 ml Route: IV; Rate: 1000 ml; Site: right forearm; jd3 04:30 Follow up: Response: No adverse reaction; IV Status: Completed infusion; IV Intake: jd3 1000ml 03:01 Drug: Racemic EPINPHrine 0.5 ml Route: Inhalation; jd3 04:00 Follow up: Response: No adverse reaction jd3 03:01 Drug: SOLU-Medrol 125 mg Route: IVP; Site: right forearm; jd3 04:00 Follow up: Response: No adverse reaction jd3 03:01 Drug: Benadryl 50 mg Route: IVP; Site: right forearm; jd3 04:00 Follow up: Response: No adverse reaction jd3 Disposition: 05/17/19 06:20 Discharged to Home. Impression: Angioedema - lisinopril. - Condition is Stable. - Discharge Instructions: Angioedema. - Prescriptions for Prednisone 20 mg Oral Tablet - take 3 tablet by ORAL route once daily for 5 days; 15 tablet. EpiPen 0.3 mg Injection auto- injector - inject 1 pen by INTRAMUSCULAR route one time As needed Inject into the outer portion of the thigh, through clothing if necessary. Indicated in the emergency treatment of allergic reactions; 1 Pack. - Medication Reconciliation Form, Thank You Letter, Antibiotic Education, Prescription Opioid Use form. - Follow up: Private Physician; When: As needed; Reason: Recheck today's complaints, Re-evaluation by your physician. - Problem is new. - Symptoms have improved. Signatures: Dispatcher [employer] EDManjinder Harris, FULFILLMENT ASSOCIATE FULFILLMENT ASSOCIATE Luis Pinedo MD MD rn Davies, Jonathon, RN RN jd3 Corrections: (The following items were deleted from the chart) 08:06 06:20 05/17/2019 06:20 Discharged to Home. Impression: Angioedema - lisinopril. em Condition is Stable. Forms are Medication Reconciliation Form, Thank You Letter, Antibiotic Education, Prescription Opioid Use. Follow up: Private Physician; When: As needed; Reason: Recheck today's complaints, Re-evaluation by your physician. Problem is new. Symptoms have improved. rn
[2019-05-17 08:17] VITALS: TEMP 97.9
[2019-05-17 08:18] VITALS: O2SAT 99
[2019-05-17 08:22] VITALS: BP 123/79
== END 2019-05-17 08:06 | disposition home or self-care (01) ==
LOC: ER 02:21
DX: T78.3XXA Angioneurotic edema, initial encounter (principal); I10 Essential (primary) hypertension; Z72.0 Tobacco use; Z88.1 Allergy status to other antibiotic agents; Z85.01 Personal history of malignant neoplasm of esophagus; Z88.6 Allergy status to analgesic agent; Z88.8 Allergy status to other drugs, medicaments and biological substances
CPT/HCPCS: 96361; 85025; 80048; 36415; 96375; 96374; 99284; J1200; J7030; J2930

== ENCOUNTER 2020-01-17 18:01 | Emergency (ER) | payer OTHER ==
--- OUTSIDE RECORDS SUMMARY | 2020-01-17 18:04 | XMS REPORT | Continuity of Care Document ---
:1975 Author Organization [facility] t Address [facility]3 [address] [place] [address] Care Team Providers Name Role Phone Unavailable Unavailable Unavailable Problems Condition Condition Condition Status Onset Resolution Last Treating Co mments Source Name Details Category Date Date Treatment Clinician Date Arthritis Arthritis Problem [facility] ent Clinics Personal Personal Problem Active [facility] of history of Marcia kes - other other Memoria diseases diseases l of the of the [facility] digestive digestive ent system system Clinics Essential Essential Problem Active [facility] hypertensi hypertensi Marcia kes - on on Memoria l [facility] ent Clinics Somnolence Somnolence Problem Active [facility] , daytime , daytime [facility] ent Clinics Other Other Problem Active [facility] specified specified Luke s - postproced postproced Me moria ural ural l states [facility] Menorrhagi Menorrhagi Problem Active [facility] a with a with [facility] - irregular irregular William siri cycle cycle l [facility] ent Clinics Major Major Problem Active [facility] depressive depressive Marcia kes - disorder, disorder, William siri single single l episode, episode, Outpat i unspecifie unspecifie en t d d Clinics Anxiety Anxiety Problem Active [facility] disorder, disorder, Luke s - unspecifie unspecifie Me moria d d l [facility] ent Clinics Family Family Problem Active [facility] history of history of Marcia kes - colon colon Memoria cancer cancer l [facility] Kidney Kidney Problem Active [facility] disease, disease, [facility] - chronic, chronic, Memori a stage I stage I l (GFR over (GFR over Outp ati 89 ml/min) 89 ml/min) en t Clinics Reflux Reflux Problem Active [facility] esophagiti esophagiti Marcia kes - s s Memoria l [facility] ent [facility] Family Family Problem Active [facility] history of history of Marcia kes - breast breast Memoria cancer cancer l [facility] Irregular Irregular Problem Active [facility] menses menses [facility] ent Clinics Umbilical Umbilical Diagnosis Active [facility] hernia hernia [facility] - without without Memoria obstructio obstructio l n and n and Outpati without without ent gangrene gangrene Clinic s Allergies, Adverse Reactions, Alerts Allergy Allergy Status Severity Reaction(s) Onset Inactive Treating Comm ents Source Name Type Date Date Clinician Ibuprofe Adverse Active Info Not [facility] n Reaction Available [facility] ent [facility] Bactrim Adverse Active Info Not [facility] Reaction Available [facility] Medications Ordered Filled Start Stop Current Ordering Indication Dosage Frequency Signature Comments Components Source Medication Medication Date Date Medication? Clinician (SIG) Name Name Metformin Metformin Yes Mikal [address] HCl HCl Kovacev with a [facility] Trokendi XR Trokendi XR Yes Mikal [address] [facility] Kovacev [facility] Duloxetine Duloxetine Yes Mikal [address] [address] HCl HCl Kovacev [facility] Lisinopril Lisinopril Yes Mikal [address] [facility] Kovacev [facility] Diflucan Diflucan 2017- No Mikal [address] 10-24 Kovacev [facility] - 00:00 Memoria :00 [facility] Procedures This patient has no known procedures. Encounters Start End Encounter Admission Attending Care Care Encounter Source Date/Time Date/Time Type Type Clinicians Facility Department ID 2017-11-12 2017-11-12 Outpatient Jase Pacheco [id number] [facility] 14:30[facility]00 14:30[facility]00 [facility] [place] [facility] William siri Clinic l [facility] ent [facility] 2017-10-24 2017-10-24 Outpatient Jase Lagunat [id number] [facility] 13:15:00 13:15:00 t Specialty/U Marcia kes - Specialty rology [facility] a /Urology Clinic l Clinic [facility] Results This patient has no known results.
[2020-01-17] MEDS ORDERED: NA CHLORIDE 0.9% 1,000 ML ONE (18:52)
[2020-01-17 19:32] LABS: Absolute Lymphocytes (CBC) 1.8 K/uL (0.7-4.9); Basophils % 0.6 % (0-1.3); Hematocrit 43.4 % (36.0-45.0); Lymphocytes % 25.2 % (15.3-44.8); MPV 9.5 fL (7.6-11.3); RBC Red Blood Cell Count 4.95 M/uL (3.86-4.86)
[2020-01-17 19:34] LABS: Urine Blood NEGATIVE (NEG); Urine Glucose NEGATIVE (NEG); Urine Protein 1+ (NEG); Urine pH 6.5 (5.0-7.0)
[2020-01-17 20:01] LABS: Potassium 3.7 mmol/L (3.5-5.1)
--- NOTE | 2020-01-17 20:15 | ER ---
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 After walking she thinks she got a heat stroke. BP 124/100 HR-104 ST 99.2 oral temp BS-143 99% RA. 20G R AC. Coronavirus screen: Client denies travel out of the [place] in the last 14 days. At this time, the client does not indicate any symptoms associated with coronavirus-19. Ebola Screen: No symptoms or risks identified at this time. Risk Assessment: Do you want to hurt yourself or someone else? Patient reports no desire to harm self or others. Onset of symptoms was January 17, 2020. 18:09 Method Of Arrival: EMS: [facility] sv 18:09 Acuity: CAL 3 sv 19:00 Initial Sepsis Screen: Does the patient meet any 2 criteria? No. Patient's initial vc sepsis screen is negative. Does the patient have a suspected source of infection? No. Patient's initial sepsis screen is negative. Triage Assessment: 18:18 General: Appears in no apparent distress. comfortable, Behavior is calm, cooperative. ls4 Pain: Denies pain. Neuro: No deficits noted. Cardiovascular: No deficits noted. Respiratory: No deficits noted. GI: No deficits noted. No signs and/or symptoms were reported involving the gastrointestinal system. Historical: - Allergies: 18:15 Bactrim; sv 18:15 Ibuprofen; sv 18:15 Protonix; sv - PMHx: 18:15 Asthma; esophageal cancer 02/2018; Hypertension; sv - PSHx: 18:15 Tubal ligation; neck discectomy; lumbar fusion; sv Screenin:00 Abuse screen: Denies threats or abuse. Nutritional screening: No deficits noted. vc Tuberculosis screening: No symptoms or risk factors identified. Fall Risk None identified. Assessment: 19:00 Reassessment: Assumed care of patient from Nelly Gill RN. vc 19:00 General: Appears in no apparent distress. comfortable, Behavior is calm, cooperative, vc appropriate for age. Pain: Denies pain. Neuro: Level of Consciousness is awake, alert, obeys commands, Oriented to person, place, time, situation, Appropriate for age. Cardiovascular: Denies chest pain, Patient's skin is warm and dry. Respiratory: Respiratory effort is even, unlabored, Respiratory pattern is regular, symmetrical. Derm: bites noted to back of neck. Vital Signs: 19:06 BP 128 / 84; Pulse 72; Resp 18; Temp 98.5; Pulse Ox 99% on R/A; jp3 20:00 BP 126 / 80; Pulse 75; Resp 18; Pulse Ox 100% on R/A; vc ED Course: 18:13 Patient arrived in ED. sv 18:15 Katie Rasheed FNP-C is [facility]. kb 18:15 Woody Higgins MD is Attending Physician. kb 18:15 Triage completed. sv 18:16 Arm band placed on. sv 18:17 Nelly Gill, RN is Primary Nurse. ls4 19:06 Bed in low position. Call light in reach. Side rails up X 1. Warm blanket given. Verbal jp3 reassurance given. Pulse ox on. NIBP on. 19:06 Patient maintains SpO2 saturation greater than 95% on room air. jp3 19:49 Chest Single View XRAY In Process Unspecified. EDMS 20:54 No provider procedures requiring assistance completed. IV discontinued, intact, vc bleeding controlled, No redness/swelling at site. Pressure dressing applied. Administered Medications: 18:46 Drug: NS 0.9% 1000 ml Route: IV; Rate: 1000 ml; Site: right antecubital; ls4 Outcome: 20:14 Discharge ordered by MD. kb 20:50 Discharged to home ambulatory. vc 20:50 Condition: good 20:50 Discharge instructions given to patient, Instructed on discharge instructions, follow up and referral plans. medication usage, Demonstrated understanding of instructions, follow-up care, medications, Prescriptions given X 1. 20:54 Patient left the ED. vc Signatures: Dispatcher [employer] EDMS Katie Rasheed FNP-C FNP-Ckb Verde, Stephanie, RN RN Erik Stover jp3 Nelly Gill, RN RN ls4 Esme Rodriguez, RN RN vc
--- NOTE | 2020-01-17 20:15 | EDPHYS ---
Physician Documentation [facility] Name: Antonina Thompson Age: 45 yrs Sex: Female : 1975 Arrival Date: 01/17/2020 Time: 18:13 Bed 13 Private MD: ED Physician Woody Higgins HPI: 01/16 20:45 This 45 yrs old Female presents to ER via EMS with complaints of Out of meds kb for parasites-sand fleas. 20:45 Pt reports she has parasites under her skin that she normally uses permethrin cream kb for, but she has been out so the parasites are starting to come out and get worse. Also reports she has had a little cough so she wanted to get an x-ray to make sure there were none in her lungs. States she had to walk to the EMS station and thinks she got overheated when she did that. . Onset: The symptoms/episode began/occurred today. Severity of symptoms: At their worst the symptoms were moderate in the emergency department the symptoms are unchanged. The patient has experienced similar episodes in the past. The patient has not recently seen a physician. Historical: - Allergies: 18:15 Bactrim; sv 18:15 Ibuprofen; sv 18:15 Protonix; sv - PMHx: 18:15 Asthma; esophageal cancer 02/2018; Hypertension; sv - PSHx: 18:15 Tubal ligation; neck discectomy; lumbar fusion; sv ROS: 20:35 Constitutional: Negative for fever, chills, and weight loss, Cardiovascular: Negative kb for chest pain, palpitations, and edema, Abdomen/GI: Negative for abdominal pain, nausea, vomiting, diarrhea, and constipation, Back: Negative for injury and pain, MS/Extremity: Negative for injury and deformity, Neuro: Negative for headache, weakness, numbness, tingling, and seizure. 20:35 Respiratory: Positive for cough, Negative for dyspnea on exertion, hemoptysis, orthopnea, pleurisy, shortness of breath, sputum production, wheezing. 20:35 Skin: Positive for "parasites under skin". Exam: 20:36 Constitutional: This is a well developed, well nourished patient who is awake, alert, kb and in no acute distress. Head/Face: Normocephalic, atraumatic. Chest/axilla: Normal chest wall appearance and motion. Nontender with no deformity. No lesions are appreciated. Cardiovascular: Regular rate and rhythm with a normal S1 and S2. No gallops, murmurs, or rubs. Normal PMI, no JVD. No pulse deficits. Respiratory: Lungs have equal breath sounds bilaterally, clear to auscultation and percussion. No rales, rhonchi or wheezes noted. No increased work of breathing, no retractions or nasal flaring. Abdomen/GI: Soft, non-tender, with normal bowel sounds. No distension or tympany. No guarding or rebound. No evidence of tenderness throughout. Back: No spinal tenderness. No costovertebral tenderness. Full range of motion. MS/ Extremity: Pulses equal, no cyanosis. Neurovascular intact. Full, normal range of motion. Neuro: Awake and alert, GCS 15, oriented to person, place, time, and situation. Cranial nerves II-XII grossly intact. Motor strength 5/5 in all extremities. Sensory grossly intact. Cerebellar exam normal. Normal gait. 20:36 Skin: small areas on right shoulder that are reddened and appear to be insect bites. Vital Signs: 19:06 BP 128 / 84; Pulse 72; Resp 18; Temp 98.5; Pulse Ox 99% on R/A; jp3 20:00 BP 126 / 80; Pulse 75; Resp 18; Pulse Ox 100% on R/A; vc MDM: 18:15 Patient medically screened. kb 20:38 Data reviewed: vital signs, nurses notes. Data interpreted: Pulse oximetry: on room air kb is 99 %. Interpretation: normal. Counseling: I had a detailed discussion with the patient and/or guardian regarding: the historical points, exam findings, and any diagnostic results supporting the discharge/admit diagnosis, lab results, radiology results, the need for outpatient follow up, a family practitioner, to return to the emergency department if symptoms worsen or persist or if there are any questions or concerns that arise at home. 01/16 18:18 Order name: CBC with Diff; Complete Time: 19:38 kb 01/16 18:18 Order name: Basic Metabolic Panel; Complete Time: 20:13 kb 01/16 18:18 Order name: CPK; Complete Time: 20:13 kb 01/16 19:02 Order name: Chest Single View XRAY; Complete Time: 20:49 kb 01/16 19:27 Order name: Urine Dipstick--Ancillary (enter results); Complete Time: 19:38 ar5 01/16 18:18 Order name: IV Start; Complete Time: 18:39 kb 01/16 18:18 Order name: Urine Dipstick-Ancillary (obtain specimen); Complete Time: 19:26 kb Administered Medications: 18:46 Drug: NS 0.9% 1000 ml Route: IV; Rate: 1000 ml; Site: right antecubital; ls4 Disposition: 01/17/20 20:14 Discharged to Home. Impression: Bitten or stung by nonvenomous insect and other nonvenomous arthropods. - Condition is Stable. - Discharge Instructions: Insect Bite, [id number]. - Prescriptions for Elimite 5 % Topical Cream - apply 1 application by TOPICAL route one time Wash after 12 hours.; 60 gram. - Medication Reconciliation Form, Thank You Letter, Antibiotic Education, Prescription Opioid Use form. - Work release form (01/17/20 21:45). bb - Follow up: Emergency Department; When: As needed; Reason: Worsening of condition. Follow up: Private Physician; When: 2 - 3 days; Reason: Recheck today's complaints, Continuance of care, Re-evaluation by your physician. Signatures: Dispatcher [employer] Katie Pillai, BOND TRADER-C BOND TRADER-Katie Maldonado, RN Nelly Betancourt RN RN ls4 Esme Rodriguez RN RN vc Ballard, Brenda RN bb Corrections: (The following items were deleted from the chart) 20:54 20:14 01/17/2020 20:14 Discharged to Home. Impression: Bitten or stung by nonvenomous vc insect and other nonvenomous arthropods. Condition is Stable. Forms are Medication Reconciliation Form, Thank You Letter, Antibiotic Education, Prescription Opioid Use. Follow up: Emergency Department; When: As needed; Reason: Worsening of condition. Follow up: Private Physician; When: 2 - 3 days; Reason: Recheck today's complaints, Continuance of care, Re-evaluation by your physician. kb
--- NOTE | 2020-01-17 20:35 | RAD REPORT ---
EXAM DESCRIPTION: Onesimo Single View01/17/2020 7:49 pm CLINICAL HISTORY: Cough COMPARISON: none FINDINGS: The lungs appear clear of acute infiltrate. The heart is normal size IMPRESSION: No acute abnormalities displayed
[2020-01-20 21:48] VITALS: BP 128/84; TEMP 98.5; O2SAT 99
== END 2020-01-17 20:54 | disposition home or self-care (01) ==
LOC: ER 18:01
DX: S40.261A Insect bite (nonvenomous) of right shoulder, initial encounter (principal); R05 Cough; I10 Essential (primary) hypertension; Z85.01 Personal history of malignant neoplasm of esophagus; Z88.1 Allergy status to other antibiotic agents; Z88.6 Allergy status to analgesic agent; Z88.8 Allergy status to other drugs, medicaments and biological substances
CPT/HCPCS: 85025; 80048; 36415; 82550; 81003; 71045; 99284; J7030

== ENCOUNTER 2020-02-09 07:10 | Emergency (ER) | payer OTHER ==
--- OUTSIDE RECORDS SUMMARY | 2020-02-09 07:11 | XMS REPORT | Continuity of Care Document ---
:1975 Author Organization [facility] t Address Formerly [facility] [address] Escal[address] [place] [address] Care Team Providers Name Role Phone Unavailable Unavailable Unavailable Problems Condition Condition Condition Status Onset Resolution Last Treating Co mments Source Name Details Category Date Date Treatment Clinician Date Arthritis Arthritis Problem [facility] Personal Personal Problem Active [facility] of history of Marcia kes - other other Memoria diseases diseases l of the of the [facility] digestive digestive ent system system Clinics Essential Essential Problem Active [facility] hypertensi hypertensi Marcia kes - on on [facility] Somnolence Somnolence Problem Active [facility] , daytime , daytime [facility] Other Other Problem Active [facility] specified specified Luke s - postproced postproced Me moria ural ural l states states [facility] Menorrhagi Menorrhagi Problem Active [facility] a with a with [facility] - irregular irregular William siri cycle cycle l [facility] Major Major Problem Active [facility] depressive depressive Marcia kes - disorder, disorder, William siri single single l episode, episode, Outpat i unspecifie unspecifie en t d d Clinics Anxiety Anxiety Problem Active [facility] disorder, disorder, Luke s - unspecifie unspecifie Me moria d d l [facility] Family Family Problem Active [facility] history of history of Marcia kes - colon colon Memoria cancer cancer l [facility] Kidney Kidney Problem Active [facility] disease, disease, [facility]ukes - chronic, chronic, Memori a stage I stage I l (GFR over (GFR over Outp ati 89 ml/min) 89 ml/min) en t Clinics Reflux Reflux Problem Active [facility] esophagiti esophagiti Marcia kes - s s [facility] Family Family Problem Active [facility] history of history of Marcia kes - breast breast Memoria cancer cancer l [facility] Irregular Irregular Problem Active [facility] menses menses [facility] Umbilical Umbilical Diagnosis Active C [...] t n Reaction Available [facility] Bactrim Adverse Active Info Not [facility] Reaction Available [facility] - [facility] Medications Ordered Filled Start Stop Current Ordering Indication Dosage Frequency Signature Comments Components Source Medication Medication Date Date Medication? Clinician (SIG) Name Name Metformin Metformin Yes Mikal [address] HCl HCl Kovacev with a [facility] Trokendi XR Trokendi XR Yes Mikal [address] [facility] Kovacev [facility] Duloxetine Duloxetine Yes Mikal [address] HCl HCl Kovacev [facility] Lisinopril Lisinopril Yes Mikal [address] Kovacev [facility] Diflucan Diflucan 2017- No Mikal [address] 10-24 Kovacev [facility] - 00:00 Memoria :00 [facility] Procedures This patient has no known procedures. Encounters Start End Encounter Admission Attending Care Care Encounter Source Date/Time Date/Time Type Type Clinicians Facility Department ID 2017-11-12 2017-11-12 Outpatient Jase Pacheco [id number] [facility] [address] 14:30:00 14:30:00 [facility] [place] [facility] William siri Clinic l [facility] 2017-10-24 2017-10-24 Outpatient Jase Lagunat [id number] [facility] 13:15:00 13:15:00 t Specialty/U Marcia kes - Specialty rology [facility] a /Urology Clinic l Clinic [facility] Results This patient has no known results.
[2020-02-09 07:25] LABS: Absolute Lymphocytes (CBC) 0.9 K/uL (0.7-4.9); Basophils % 0.3 % (0-1.3); Hematocrit 37.2 % (36.0-45.0); Lymphocytes % 9.4 % (15.3-44.8); MPV 9.2 fL (7.6-11.3); RBC Red Blood Cell Count 4.24 M/uL (3.86-4.86)
[2020-02-09 07:46] LABS: ALT/SGPT 16 U/L (12-78); AST/SGOT 10 U/L (15-37); Albumin 3.2 g/dL (3.4-5.0); Alkaline Phosphatase 86 U/L (45-117); BUN Blood Urea Nitrogen 13 mg/dL (7-18); Bicarbonate 25 mmol/L (21-32); Bilirubin Direct 0.2 mg/dL (0-0.2); Bilirubin Total 0.7 mg/dL (0.2-1.0); Glucose Level 103 mg/dL (74-106); Lipase 48 U/L (73-393); Potassium 3.8 mmol/L (3.5-5.1); Sodium Level 139 mmol/L (136-145)
[2020-02-09] MEDS ORDERED: ONDANSETRON 4 MG/2 ML VIAL ONE (07:47)
[2020-02-09] MEDS ORDERED: MORPHINE 4 MG/ML SYR ONE ×2 (07:47→08:55)
--- NOTE | 2020-02-09 08:25 | RAD REPORT ---
EXAM DESCRIPTION: CT - Abdomen Pelvis W Contrast - 02/09/2020 7:57 am CLINICAL HISTORY: RLQ abd pain COMPARISON: Abdomen Pelvis W Contrast dated 05/22/2018 TECHNIQUE: Biphasic, helical CT imaging of the abdomen and pelvis was performed following 100 ml non -ionic IV contrast. No oral contrast administered. All CT scans are performed using dose optimization technique as appropriate and may include automated exposure control or mA/KV adjustment according to patient size. FINDINGS: No suspicious findings in the lung bases. Liver attenuation indicates minimal fatty infiltration. No focal liver lesion. Portal vein is normal. Spleen and pancreas show no suspicious findings. Gallbladder and biliary tree are also without suspi cious finding. Mild to moderate dilatation of the right collecting system is present. There is delayed function of t he right renal parenchyma compared to the left. Patient has a 3-4 mm calcification at the right UVJ. Configuration of the UVJ may indicate the presence of a ureterocele. Patient has a cluster of 2-5 mm nonobstructing calculi in the mid right renal calyx. No left-sided hydronephrosis or calculi. No pyel onephritis or acute parenchymal process. No bladder calculus or bladder wall thickening. No adrenal a bnormalities. Uterus and ovaries show no suspicious findings. No dilated bowel loops or bowel wall thickening. Sigmoid colon shows very minimal diverticulosis. Cec um is low lying along the anterior floor the pelvis. This places the appendix in the anterior left pe lvic floor. No free air, free fluid or inflammatory stranding. No hernia, mass or bulky lymphadenopathy. No suspicious bony findings. L4-[address] No acute findings. IMPRESSION: Mild to moderate right-sided hydronephrosis secondary to a 3-4 mm calcification at the U VJ. A ureterocele may be present at the UVJ. No pyelonephritis or acute renal parenchymal process seen. Patient has nonobstructing right-side jennifer x calculi. Patient's cecum is low lying on the floor of the pelvis as a normal variant placing the normal append ix at the left anterior pelvic floor. Mild diffuse fatty infiltration of the liver.
[2020-02-09] MEDS ORDERED: TAMSULOSIN 0.4 MG SR CAP ONE (08:55)
[2020-02-09] MEDS ORDERED: MAGNESIUM SULFATE 1 gm IVPB 1 GM/100 ML BAG IV ONE (08:56)
--- NOTE | 2020-02-09 09:32 | ER ---
Nurse's Notes [facility] Name: Antonina Thompson Age: 45 yrs Sex: Female : 1975 Arrival Date: 02/09/2020 Time: 07:11 Bed 2 Private MD: Diagnosis: Calculus of lower urinary tract, unspecified;Urinary tract infection, site not specified Presentation: 02/08 07:11 Chief complaint: EMS states: pt states starting yesterday with gradual onset starting tw2 having lower RIGHT quadrant abdominal pain, went from dull to sharp, we arrived it was 10/10, we gave 100 mcg Fentanyl, pain went to 7/10, hx anxiety, htn, allergy ibuprofen and bactrim. Coronavirus screen: At this time, the client does not indicate any symptoms associated with coronavirus-19. Ebola Screen: Patient denies travel to an Ebola-affected area in the 21 days before illness onset. Initial Sepsis Screen: Does the patient meet any 2 criteria? No. Patient's initial sepsis screen is negative. Does the patient have a suspected source of infection? No. Patient's initial sepsis screen is negative. Initial Sepsis Screen: Does the patient meet any 2 criteria?. Risk Assessment: Do you want to hurt yourself or someone else? Patient reports desire/thoughts of hurting themselves or someone else. Provider notified. Onset of symptoms was February 09, 2020. 07:11 Method Of Arrival: EMS: [facility] tw2 07:11 Acuity: CAL 3 tw2 Triage Assessment: 07:11 General: Appears uncomfortable, obese, Behavior is calm, cooperative, appropriate for tw2 age. Pain: Complains of pain in abdomen. GI: Reports lower abdominal pain. DISTRICT AGENT: 09:10 LMP N/A - tw2 Historical: - Allergies: 07:15 Bactrim; tw2 07:15 Ibuprofen; tw2 07:15 Protonix; tw2 07:15 Demerol; tw2 - Home Meds: 07:15 lisinopril Oral [Active]; tw2 - PMHx: 07:15 Asthma; esophageal cancer 02/2018; Hypertension; tw2 - PSHx: 07:15 Tubal ligation; neck discectomy; lumbar fusion; tw2 - Immunization history:: Adult Immunizations. - Social history:: Smoking status: . - Family history:: not pertinent. - Hospitalizations: : No recent hospitalization is reported. Screenin:16 Abuse screen: Denies threats or abuse. Nutritional screening: On. Tuberculosis tw2 screening: No symptoms or risk factors identified. Fall Risk None identified. Assessment: 07:12 General: Appears in no apparent distress. obese, Behavior is cooperative, appropriate tw2 for age. Pain: Complains of pain in right lower quadrant. Neuro: Level of Consciousness is awake, alert, obeys commands, Oriented to person, place, time, situation. Cardiovascular: Heart tones S1 S2 Patient's skin is warm and dry. Respiratory: Airway is patent Respiratory effort is even, unlabored, Respiratory pattern is regular, symmetrical, Breath sounds are clear bilaterally. GI: Abdomen is round non-distended, obese, Bowel sounds present X 4 quads. Abd is soft X 4 quads Reports lower abdominal pain. : No signs and/or symptoms were reported regarding the genitourinary system. EENT: No signs and/or symptoms were reported regarding the EENT system. Derm: No signs and/or symptoms reported regarding the dermatologic system. Musculoskeletal: Range of motion: intact in all extremities. 08:03 Reassessment: pt back from Cat scan crying at this time, pt states 02/26, provider tw2 notified. Patient states symptoms have not improved. 09:00 Reassessment: Patient and/or family updated on plan of care and expected duration. Pain tw2 level reassessed. Patient is alert, oriented x 3, equal unlabored respirations, skin warm/dry/pink. 09:03 Reassessment: pt states "i need to go to the bathroom", bedpan offered or wheelchair to tw2 the restroom, pt states "oh, i would rather go to the bathroom, pt taken to restroom in wheelchair at this time with urine specimen cup. 10:12 Reassessment: Patient appears in no apparent distress at this time. No changes from tw2 previously documented assessment. Patient and/or family updated on plan of care and expected duration. Pain level reassessed. Patient is alert, oriented x 3, equal unlabored respirations, skin warm/dry/pink. 10:36 Reassessment: Patient appears in no apparent distress at this time. No changes from tw2 previously documented assessment. Patient and/or family updated on plan of care and expected duration. Pain level reassessed. Patient is alert, oriented x 3, equal unlabored respirations, skin warm/dry/pink. Vital Signs: 07:11 BP 139 / 93; Pulse 78; Resp 17; Temp 98.2(TE); Pulse Ox 100% on R/A; Weight 99.79 kg tw2 (R); Height 5 ft. 6 in. (167.64 cm); Pain 7/10; 08:10 BP 127 / 107; Pulse 86; Pulse Ox 97% on R/A; Pain 10/10; tw2 08:58 BP 128 / 83; Pulse 81; Resp 21; Pulse Ox 100% ; sv 10:12 BP 125 / 92; Pulse 82; Resp 19; Pulse Ox 100% on R/A; Pain 6/10; tw2 07:11 Body Mass Index 35.51 (99.79 kg, 167.64 cm) tw2 ED Course: 07:11 Patient arrived in ED. tw2 07:11 Luis Loaiza MD is Attending Physician. rn 07:11 Bed in low position. Call light in reach. Pulse ox on. NIBP on. tw2 07:14 Triage completed. tw2 07:14 Arm band placed on. tw2 07:15 Maintain EMS IV. Dressing intact. Good blood return noted. Site clean \\T\\ dry. Gauge \\T\\ tw 2 site: 18 g. 07:31 Johana Gomez, RN is Primary Nurse. tw2 07:57 CT Abd/Pelvis - IV Contrast Only In Process Unspecified. EDMS 10:12 No provider procedures requiring assistance completed. IV discontinued, intact, tw2 bleeding controlled, No redness/swelling at site. Pressure dressing applied. Administered Medications: 07:43 Drug: Zofran (Ondansetron) 4 mg Route: IVP; Site: left forearm; tw2 08:50 Follow up: Response: No adverse reaction tw2 07:45 Drug: morphine 4 mg Route: IVP; Site: left forearm; tw2 08:40 Follow up: Response: No adverse reaction; Pain is unchanged, physician notified; RASS: tw2 Alert and Calm (0) 08:50 Drug: morphine 4 mg {Note: rass 0.} Route: IVP; Site: left forearm; tw2 10:12 Follow up: Response: No adverse reaction; Pain is decreased; RASS: Alert and Calm (0) tw2 08:51 Drug: Magnesium Sulfate 1 grams Route: IVPB; Infused Over: 1 hrs; Site: left forearm; tw2 10:11 Follow up: Response: No adverse reaction; IV Status: Completed infusion tw2 08:51 Drug: Flomax 0.4 mg Route: PO; 2 10:11 Follow up: Response: No adverse reaction tw2 Outcome: 09:31 Discharge ordered by . rn 10:12 Discharged to home via wheelchair. tw2 10:12 Condition: stable 10:12 Discharge instructions given to patient, Instructed on discharge instructions, follow up and referral plans. no drinking with medication, no driving heavy equipment, medication usage, Demonstrated understanding of instructions, follow-up care, medications, Prescriptions given X 3. 10:36 Patient left the ED. tw2 Signatures: Dispatcher [employer] Katie Lowry, Luis Adams RN, MD MD rn Wise, Tara, RN RN tw2
--- NOTE | 2020-02-09 09:32 | EDPHYS ---
Physician Documentation [facility] Name: Antonina Thompson Age: 45 yrs Sex: Female : 1975 Arrival Date: 02/09/2020 Time: 07:11 Bed 2 Private MD: ED Physician Luis Loaiza HPI: 02/08 07:13 This 45 yrs old Female presents to ER via Unassigned with complaints of rn Abdominal Pain. 07:13 The patient presents with abdominal pain right lower quadrant. Onset: The rn symptoms/episode began/occurred yesterday. The symptoms do not radiate. Associated signs and symptoms: Pertinent positives: nausea, Pertinent negatives: blood in stools, fever, vomiting, vomiting blood. The symptoms are described as crampy, intermittent, sharp. Modifying factors: The symptoms are alleviated by nothing, the symptoms are aggravated by touching the area. Severity of pain: At its worst the pain was moderate in the emergency department the pain is unchanged. The patient has experienced a previous episode. The patient has not recently seen a physician. 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 - Social history:: Smoking status: . - Family history:: not pertinent. - Hospitalizations: : No recent hospitalization is reported. ROS: 07:13 Constitutional: Negative for fever, chills, and weight loss, Neck: Negative for injury, rn pain, and swelling, Cardiovascular: Negative for chest pain, palpitations, and edema, Respiratory: Negative for shortness of breath, cough, wheezing, and pleuritic chest pain, Abdomen/GI: Negative for vomiting, and constipation Back: Negative for injury and pain, MS/Extremity: Negative for injury and deformity, Skin: Negative for injury, rash, and discoloration, Neuro: Negative for headache, weakness, numbness, tingling, and seizure. Exam: 07:13 Constitutional: Overweight female, no acute distress Head/Face: Normocephalic, rn atraumatic. Cardiovascular: Regular rate and rhythm. No pulse deficits. Respiratory: No increased work of breathing, no retractions or nasal flaring. Abdomen/GI: soft, + periumbilical and RLQ tenderness, no peritoneal signs. Skin: Warm, dry with normal turgor. Normal color with no rashes, no lesions, and no evidence of cellulitis. MS/ Extremity: Pulses equal, no cyanosis. Neurovascular intact. Full, normal range of motion. Equal circumference. Neuro: Awake and alert, GCS 15, oriented to person, place, time, and situation. Cranial nerves II-XII grossly intact. Motor strength 5/5 in all extremities. Sensory grossly intact. Vital Signs: 07:11 BP 139 / 93; Pulse 78; Resp 17; Temp 98.2(TE); Pulse Ox 100% on R/A; Weight 99.79 kg tw2 (R); Height 5 ft. 6 in. (167.64 cm); Pain 7/10; 08:10 BP 127 / 107; Pulse 86; Pulse Ox 97% on R/A; Pain 10/10; tw2 08:58 BP 128 / 83; Pulse 81; Resp 21; Pulse Ox 100% ; sv 10:12 BP 125 / 92; Pulse 82; Resp 19; Pulse Ox 100% on R/A; Pain 6/10; tw2 07:11 Body Mass Index 35.51 (99.79 kg, 167.64 cm) tw2 MDM: 07:11 Patient medically screened. rn 09:30 Differential diagnosis: appendicitis, non-specific abd pain, Ureterolithiasis, urinary rn tract infection. Data reviewed: vital signs, nurses notes, lab test result(s), radiologic studies, CT scan, and as a result, I will discharge patient. Counseling: I had a detailed discussion with the patient and/or guardian regarding: the historical points, exam findings, and any diagnostic results supporting the discharge/admit diagnosis, lab results, radiology results, the need for outpatient follow up, to return to the emergency department if symptoms worsen or persist or if there are any questions or concerns that arise at home. Response to treatment: the patient's symptoms have markedly improved after treatment, and as a result, I will discharge patient. Special discussion: I discussed with the patient/guardian in detail that at this point there is no indication for admission to the hospital. It is understood, however, that if the symptoms persist or worsen the patient needs to return immediately for re-evaluation. 02/08 07:12 Order name: Basic Metabolic Panel; Complete Time: 08:26 rn 02/08 07:12 Order name: CBC with Diff; Complete Time: 08:26 rn 02/08 07:12 Order name: Hepatic Function; Complete Time: 08:26 rn 02/08 07:12 Order name: Lipase; Complete Time: 08:26 rn 02/08 07:12 Order name: Urine Microscopic Only rn 02/08 09:21 Order name: Urine Dipstick--Ancillary (enter results) bd 02/08 07:12 Order name: CT Abd/Pelvis - IV Contrast Only; Complete Time: 08: rn 02/08 09:21 Order name: Urine --Ancillary (enter results) bd 02/08 10:22 Order name: Urine Culture EDGA 02/08 07:12 Order name: IV Saline Lock; Complete Time: 07:36 rn 02/08 07:12 Order name: Labs collected and sent; Complete Time: 07:36 rn 02/08 07:12 Order name: Urine Test (obtain specimen); Complete Time: 10:12 rn 02/08 07:12 Order name: Urine Dipstick-Ancillary (obtain specimen); Complete Time: 10:12 rn Administered Medications: 07:43 Drug: Zofran (Ondansetron) 4 mg Route: IVP; Site: left forearm; tw2 08:50 Follow up: Response: No adverse reaction tw2 07:45 Drug: morphine 4 mg Route: IVP; Site: left forearm; tw2 08:40 Follow up: Response: No adverse reaction; Pain is unchanged, physician notified; RASS: tw2 Alert and Calm (0) 08:50 Drug: morphine 4 mg {Note: rass 0.} Route: IVP; Site: left forearm; tw2 10:12 Follow up: Response: No adverse reaction; Pain is decreased; RASS: Alert and Calm (0) tw2 08:51 Drug: Magnesium Sulfate 1 grams Route: IVPB; Infused Over: 1 hrs; Site: left forearm; tw2 10:11 Follow up: Response: No adverse reaction; IV Status: Completed infusion tw2 08:51 Drug: Flomax 0.4 mg Route: PO; tw2 10:11 Follow up: Response: No adverse reaction tw2 Disposition: 02/09/20 09:31 Discharged to Home. Impression: Calculus of lower urinary tract, unspecified, Urinary tract infection, site not specified. - Condition is Stable. - Discharge Instructions: Kidney Stones, Urinary Tract Infection, Adult, Dietary Guidelines to Help Prevent Kidney Stones. - Prescriptions for Zofran ODT 4 mg Oral tablet,disintegrating - place 1 tablet by TRANSLINGUAL route every 8-10 hours As needed; 15 tablet. Tylenol- Codeine #3 300-30 mg Oral Tablet - take 1 tablet by ORAL route every 6 hours As needed; 15 tablet. Cipro 500 mg Oral Tablet - take 1 tablet by ORAL route every 12 hours for 7 days; 14 tablet. - Medication Reconciliation Form, Thank You Letter, Antibiotic Education, Prescription Opioid Use form. - Follow up: Private Physician; When: As needed; Reason: Recheck today's complaints, Re-evaluation by your physician. - Problem is new. - Symptoms have improved. Signatures: Dispatcher [employer] EDMS Luis Loaiza MD MD rn Wise, Tara, RN RN tw2 Corrections: (The following items were deleted from the chart) 10:36 09:31 02/09/2020 09:31 Discharged to Home. Impression: Calculus of lower urinary tract, tw2 unspecified; Urinary tract infection, site not specified. Condition is Stable. Forms are Medication Reconciliation Form, Thank You Letter, Antibiotic Education, Prescription Opioid Use. Follow up: Private Physician; When: As needed; Reason: Recheck today's complaints, Re-evaluation by your physician. Problem is new. Symptoms have improved. rn
[2020-02-09 09:44] LABS: Urine Blood 3+ (NEG); Urine Glucose NEGATIVE (NEG); Urine Protein 2+ (NEG); Urine Specific Gravity 1.015 (1.005-1.030); Urine pH 8.5 (5.0-7.0)
[2020-02-09 10:21] LABS: Urine Bacteria LOADED /HPF (<20); Urine Culture Reflex Order REFLEXED
[2020-02-09 10:55] VITALS: TEMP 98.2
[2020-02-09 11:02] VITALS: O2SAT 100
[2020-02-09 11:03] VITALS: BP 125/92
== END 2020-02-09 10:36 | disposition home or self-care (01) ==
LOC: ER 07:10
DX: N20.9 Urinary calculus, unspecified (principal); N39.0 Urinary tract infection, site not specified; I10 Essential (primary) hypertension; Z85.01 Personal history of malignant neoplasm of esophagus; Z88.1 Allergy status to other antibiotic agents; Z88.5 Allergy status to narcotic agent; Z88.6 Allergy status to analgesic agent; Z88.8 Allergy status to other drugs, medicaments and biological substances
CPT/HCPCS: 87088; 85025; 87086; 80048; 36415; 81025; 80076; 83690; 74177; Q9967; J3475; J2405; 81003; 81015; 96365; 96375; 99284

== ENCOUNTER 2020-03-17 12:36 | Emergency (ER) | payer OTHER ==
--- NOTE | 2020-03-17 13:25 | EDPHYS ---
Physician Documentation [facility] Name: Antonina Thompson Age: 45 yrs Sex: Female : 1975 Arrival Date: 03/17/2020 Time: 12:38 Bed 7 Private MD: ED Physician Pedro Rodriguez HPI: 03/17 13:19 This 45 yrs old Female presents to ER via Ambulatory with complaints of jmm Foreign Body In Ear, Drainage From Ear. 13:19 The patient presents with pain. Onset: The symptoms/episode began/occurred gradually. jmm Modifying factors: The symptoms are alleviated by nothing, the symptoms are aggravated by nothing. Associated signs and symptoms: Pertinent negatives: fever. This is a 45 year old female with a history of asthma and htn that presents to the ED with complaints of left ear pain. Patient states she noticed drainage today and is concerned there may be a foreign object in the ear. . Historical: - Allergies: 12:59 Bactrim; sv 12:59 Demerol; sv 12:59 Ibuprofen; sv 12:59 Protonix; sv - PMHx: 12:59 Asthma; esophageal cancer 02/2018; Hypertension; sv - PSHx: 12:59 Tubal ligation; neck discectomy; lumbar fusion; sv - Immunization history:: Flu vaccine is not up to date. - Social history:: Smoking status: Patient reports the use of cigarette tobacco products, smokes one-half pack cigarettes per day. ROS: 13:19 Constitutional: Negative for fever, chills, and weight loss, Cardiovascular: Negative jmm for chest pain, palpitations, and edema, Respiratory: Negative for shortness of breath, cough, wheezing, and pleuritic chest pain. 13:19 ENT: Positive for ear pain. 13:19 All other systems are negative. Exam: 13:19 Constitutional: This is a well developed, well nourished patient who is awake, alert, jmm and in no acute distress. Head/Face: atraumatic. Eyes: EOMI, no conjunctival erythema appreciated 13:19 Neck: Trachea midline, Supple Chest/axilla: Normal chest wall appearance and motion. 13:19 Respiratory: Normal respirations, no respiratory distress appreciated Abdomen/GI: Non distended, soft Back: Normal ROM Skin: General appearance color normal MS/ Extremity: Moves all extremities, no obvious deformities appreciated, no edema noted to the lower extremities Neuro: Awake and alert, normal gait Psych: Behavior is normal, Mood is normal, Patient is cooperative and pleasant 13:19 ENT: TM's: 13:19 ENT: TM's: erythema, that is moderate, on the left, rupture, on the left, with purulent discharge. 13:19 Cardiovascular: Rate: normal, Rhythm: regular, Pulses: no pulse deficits are appreciated. Vital Signs: 13:00 BP 130 / 92; Pulse 73; Resp 16; Temp 98; Pulse Ox 97% ; Weight 99.79 kg; Height 5 ft. 6 sv in. (167.64 cm); 13:00 Body Mass Index 35.51 (99.79 kg, 167.64 cm) sv MDM: 13:18 Patient medically screened. [facility] 13:22 Data reviewed: vital signs, nurses notes. Counseling: I had a detailed discussion with tricia the patient and/or guardian regarding: the historical points, exam findings, and any diagnostic results supporting the discharge/admit diagnosis, the need for outpatient follow up, to return to the emergency department if symptoms worsen or persist or if there are any questions or concerns that arise at home. ED course: Patient is alert and non toxic in appearance in the ED. Patient advised to follow up with pcp and otherwise given strict return precautions. PE findings concerning for ruptured TM. Canal is erythematous and tender on palpation of the ear. . Administered Medications: No medications were administered Disposition: 14:18 Co-signature as Attending Physician, Pedro Rodriguez MD I agree with the assessment and kdr plan of care. Disposition: 03/17/20 13:24 Discharged to Home. Impression: Acute serous otitis media, left ear, Other marginal perforations of tympanic membrane, Acute actinic otitis externa. - Condition is Stable. - Discharge Instructions: Otitis Media, Adult, Otitis Externa. - Prescriptions for Augmentin 875- 125 mg Oral Tablet - take 1 tablet by ORAL route every 12 hours for 10 days; 20 tablet. Cortisporin- TC 3.3-3-10-0.5 mg/mL Otic Suspension - instill 4 drop by OTIC route every 6 hours; 1 bottle. Ultracet 37.5- 325 mg Oral Tablet - take 1 tablet by ORAL route every 6 hours - for up to 5 days; do not exceed 8 tablets per day.; 20 tablet. - Medication Reconciliation Form, Thank You Letter, Antibiotic Education, Prescription Opioid Use form. - Follow up: Private Physician; When: 2 - 3 days; Reason: Recheck today's complaints, Continuance of care, Re-evaluation by your physician. Signatures: Katie Stokes RN RN Pedro Kahn MD MD kdr Mickail, Joel, PA PA [facility] [place] [id number] Corrections: (The following items were deleted from the chart) 13:56 13:24 03/17/2020 13:24 Discharged to Home. Impression: Acute serous otitis media, left dh3 ear; Other marginal perforations of tympanic membrane; Acute actinic otitis externa. Condition is Stable. Forms are Medication Reconciliation Form, Thank You Letter, Antibiotic Education, Prescription Opioid Use. Follow up: Private Physician; When: 2 - 3 days; Reason: Recheck today's complaints, Continuance of care, Re-evaluation by your physician. tricia
--- NOTE | 2020-03-17 13:25 | ER ---
Nurse's Notes [facility] Name: Antonina Thompson Age: 45 yrs Sex: Female : 1975 Arrival Date: 03/17/2020 Time: 12:38 Bed 7 Private MD: Diagnosis: Acute serous otitis media, left ear;Other marginal perforations of tympanic membrane;Acute actinic otitis externa Presentation: 03/17 12:57 Chief complaint: Patient states: "My left ear has something coming out of it." Reports sv drainage and swelling and thinks there might be a bug in her ear, first noticed it a week ago. Coronavirus screen: Client denies travel out of the [place] in the last 14 days. At this time, the client does not indicate any symptoms associated with coronavirus-19. Ebola Screen: No symptoms or risks identified at this time. Risk Assessment: Do you want to hurt yourself or someone else? Patient reports no desire to harm self or others. Onset of symptoms was February 2020. 12:57 Method Of Arrival: Ambulatory sv 12:57 Acuity: CAL 4 sv 13:00 Initial Sepsis Screen: Does the patient meet any 2 criteria? No. Patient's initial sv sepsis screen is negative. Does the patient have a suspected source of infection? No. Patient's initial sepsis screen is negative. Historical: - Allergies: 12:59 Bactrim; sv 12:59 Demerol; sv 12:59 Ibuprofen; sv 12:59 Protonix; sv - PMHx: 12:59 Asthma; esophageal cancer 02/2018; Hypertension; sv - PSHx: 12:59 Tubal ligation; neck discectomy; lumbar fusion; sv - Immunization history:: Flu vaccine is not up to date. - Social history:: Smoking status: Patient reports the use of cigarette tobacco products, smokes one-half pack cigarettes per day. Vital Signs: 13:00 BP 130 / 92; Pulse 73; Resp 16; Temp 98; Pulse Ox 97% ; Weight 99.79 kg; Height 5 ft. 6 sv in. (167.64 cm); 13:00 Body Mass Index 35.51 (99.79 kg, 167.64 cm) sv ED Course: 12:38 Patient arrived in ED. ds1 12:57 Arm band placed on. sv 12:59 Triage completed. sv 13:10 Mickail, Aquilino, PA is PHCP. tricia 13:10 Pedro Rodriguez MD is Attending Physician. tricia Administered Medications: No medications were administered Outcome: 13:24 Discharge ordered by . tricia 13:56 Patient left the ED. 3 Signatures: Katie Stokes RN RN Aquilino Vora PA PA Corine Sampson ds1 Barbie Wong [facility]
--- OUTSIDE RECORDS SUMMARY | 2020-03-17 13:26 | XMS REPORT | Continuity of Care Document ---
:1975 Author Organization [facility] t Address Count includes the [facility] [address] [place] [address] Care Team Providers Name Role Phone Unavailable Unavailable Unavailable Problems Condition Condition Condition Status Onset Resolution Last Treating Co mments Source Name Details Category Date Date Treatment Clinician Date Arthritis Arthritis Problem [facility] Clin[facility] Personal Personal Problem [facility] of history of Marcia kes - other other Memoria diseases diseases l of the of the [facility] digestive digestive ent system system Clinics Essential Essential Problem Active [facility] hypertensi hypertensi Marcia kes - on on Memoria l [facility] ent Clinics Somnolence Somnolence Problem Active [facility] , daytime , daytime [facility] ent Clinics Other Other Problem Active [facility] specified specified Luke s - postproced postproced Me moria ural ural l states states [facility] Menorrhagi Menorrhagi Problem Active [facility] a with a with [facility] - irregular irregular William siri cycle cycle l [facility] ent Clinics Major Major Problem Active [facility] depressive depressive Marcia kes - disorder, disorder, William siri single single l episode, episode, Outpat i unspecifie unspecifie en t d d Clinics Anxiety Anxiety Problem Active [facility] disorder, disorder, Luke s - unspecifie unspecifie Me moria d d l [facility] ent Clinics Family Family Problem Active [facility] history of history of Marcia kes - colon colon Memoria cancer cancer l [facility] Kidney Kidney Problem Active [facility] disease, disease, [facility]ukes - chronic, chronic, Memori a stage I stage I l (GFR over (GFR over Outp ati 89 ml/min) 89 ml/min) en t Clinics Reflux Reflux Problem Active [facility] esophagiti esophagiti Marcia kes - s s Memoria l [facility] ent [facility] Family Family Problem Active [facility] history of history of Marcia kes - breast breast Memoria cancer cancer l [facility] Irregular Irregular Problem Active [facility] menses menses [facility] Clinics Umbilical Umbilical Diagnosis Active [...] t n Reaction Available [facility] ent [facility] Bactrim Adverse Active Info Not [facility] Reaction Available [facility] Medications Ordered Filled Start Stop Current Ordering Indication Dosage Frequency Signature Comments Components Source Medication Medication Date Date Medication? Clinician (SIG) Name Name Metformin Metformin Yes Mikal [address] HCl HCl K[facility]v [facility] Trokendi XR Trokendi XR Yes Mikal [address] [facility] Kovacev [facility] Duloxetine Duloxetine Yes Mikal [address] HCl HCl Kovacev [facility] Lisinopril Lisinopril Yes Mikal [address]v [facility] Diflucan Diflucan 2017- No Mikal [address] 10-24 Kovacev [facility] - 00:00 Memoria :00 [facility] Procedures This patient has no known procedures. Encounters Start End Encounter Admission Attending Care Care Encounter Source Date/Time Date/Time Type Type Clinicians Facility Department ID 2017-11-12 2017-11-12 Outpatient Jase Pacheco [id number] [address] 14:30:00 14:30:00 [facility] [place] [facility] William siri Clinic l [facility] ent [facility] 2017-10-24 2017-10-24 Outpatient Jase Lagunat [id number] [address] 13:15:00 13:15:00 t Specialty/U Marcia kes - Specialty rology [facility] a /Urology Clinic l Clinic [facility] Results This patient has no known results.
== END 2020-03-17 13:56 | disposition home or self-care (01) ==
LOC: ER 12:36
DX: H65.02 Acute serous otitis media, left ear (principal); H60.512 Acute actinic otitis externa, left ear; H72.2X2 Other marginal perforations of tympanic membrane, left ear; I10 Essential (primary) hypertension; F17.210 Nicotine dependence, cigarettes, uncomplicated; Z85.01 Personal history of malignant neoplasm of esophagus; Z88.1 Allergy status to other antibiotic agents; Z88.5 Allergy status to narcotic agent; Z88.6 Allergy status to analgesic agent; Z88.8 Allergy status to other drugs, medicaments and biological substances
CPT/HCPCS: 99281